=== PATIENT | female | born 1940 | race Caucasian/White ===

== ENCOUNTER → 2016-10-09 | Outpatient (CLI) | payer MEDICARE ==
--- NOTE | 2016-10-09 16:28 | XR ---
EXAMINATION TYPE: XR chest 2V DATE OF EXAM: 10/09/2016 3:58 PM COMPARISON: Prior chest x-ray 05 October 2015 HISTORY: Shortness of breath TECHNIQUE: Frontal and lateral views of the chest are obtained. FINDINGS: Prominent lung volumes are again noted suggesting underlying COPD. Suspect coronary artery calcifications, the aorta is dense. The heart remains enlarged. No airspace disease, pneumothorax, o r pleural effusion. Patient is rotated. IMPRESSION: No acute cardiopulmonary process. Cardiomegaly and additional findings above.
[2016-10-09 16:34] LABS: Basophils % (A) 0 %; CH 31.7; CHCM 32.6; Eosinophils # (A) 0.1 k/uL (0-0.7); Eosinophils % (A) 1 %; HCT 39.1 % (34.0-46.0); HDW 2.37; HGB 12.4 gm/dL (11.4-16.0); Luc # (Auto) 0.21; Luc % (Auto) 3; Lymphocytes # (A) 1.8 k/uL (1.0-4.8); Lymphocytes % (A) 28 %; MCH 30.9 pg (25.0-35.0); MCHC 31.7 g/dL (31.0-37.0); MCV 97.5 fL (80.0-100.0); Mean Platelet Volume 7.7; Monocytes # (A) 0.4 k/uL (0-1.0); Monocytes % (A) 7 %; Neutrophils # (A) 3.9 k/uL (1.3-7.7); Neutrophils % (A) 60 %; RDW 13.4 % (11.5-15.5); WBC 6.5 k/uL (3.8-10.6); WBC (Perox) 6.88
[2016-10-09 16:41] LABS: Calcium 9.1 mg/dL (8.4-10.2); Potassium 4.1 mmol/L (3.5-5.1); Total Bilirubin 0.4 mg/dL (0.2-1.3); Total Protein 6.7 g/dL (6.3-8.2)
== END | disposition home or self-care (01) ==
LOC: RADXRMAIN 15:38
PROVIDERS: ATTEND Internal Medicine Cardiovascular Disease
DX: R06.02 Shortness of breath (principal); I51.7 Cardiomegaly
CPT/HCPCS: 71020; 80053; 83880; 85025

== ENCOUNTER 2016-10-24 07:29 | Inpatient (IN) | payer MEDICARE ==
[2016-10-22 09:27] VITALS: BMI 20.3
[~2016-10-24 07:29] MED LIST: SODIUM CHLORIDE 0.9% 1,000 ML IV SCH; ceFAZolin 2 GM in SODIUM CHLORIDE 0.9% 100 ML IVPB ONE
[2016-10-24] MEDS ORDERED: ceFAZolin 2 GM in SODIUM CHLORIDE 0.9% 100 ML IVPB STA (07:30)
[2016-10-24 07:50] VITALS: RESP 16
[2016-10-24 08:12] LABS: INR 1.8 (<1.1); Prothrombin Time 17.3 sec (9.0-12.0)
[2016-10-24] MEDS: BENZOCAINE SPRAY 100 APPLIC/CAN MUCOUS MEM ONE ×2 (08:25→08:31)
[2016-10-24] MEDS ORDERED: fentaNYL (PF) 50 MCG/ML 2 ML AMP IV ONE (08:33)
[2016-10-24] MEDS: MIDAZOLAM 2 MG/2 ML VIAL IV ONE ×2 (08:33→08:36)
[2016-10-24] MEDS ORDERED: DEXTROSE 5% IN WATER 100 ML with AMIODARONE 150 MG IV ONE ×2 (09:10→09:29)
[2016-10-24] MEDS ORDERED: ALPRAZolam 0.5 MG TAB PO PRN (09:20)
[2016-10-24] MEDS ORDERED: ASPIRIN 325 MG TAB PO STA (09:20)
[2016-10-24] MEDS ORDERED: SODIUM CHLORIDE 0.9% 1,000 ML in EMPTY BAG 1 BAG IV ONE (09:20)
[2016-10-24] MEDS ORDERED: ATORVASTATIN 80 MG TAB PO STA (09:20)
[2016-10-24] MEDS ORDERED: NITROGLYCERIN SL TABS 0.4 MG TAB SUBLINGUAL PRN (09:20)
[2016-10-24] MEDS ORDERED: ALPRAZolam 0.25 MG TAB PO PRN (09:20)
[2016-10-24] MEDS ORDERED: HEPARIN SODIUM,PORCINE 5,000 UNIT/ML 1 ML VIAL IV PRN (09:27)
--- NOTE | 2016-10-24 09:27 | P.PCN ---
Date of Procedure: 10/24/16 Preoperative Diagnosis: Mitral regurgitation, atrial fibrillation and congestive heart failure Postoperative Diagnosis: Moderately severe mitral regurgitation, ruptured chordae tendineae. Procedure(s) Performed: DONALDO examination Description of Procedure: INDICATION : Mitral regurgitation and CHF CONSENT: Verbal consent was obtained from patient and family PROCEDURE: Patient was brought to the lab in a fasting state. She was prepped and draped in the usual fashion. The throat was sprayed with Hurricaine. A lubricated Omni probe was introduced in the oropharynx and was advanced into the esophagus. Multiple views were obtained both from esophagus and stomach. Color Doppler study was done. Saline contrast bubble injections were not performed. Patient tolerated the procedure well. No immediate complications. FINDINGS: The mitral valve shows thickening and evidence of a ruptured chordae tendineae. There appears to be eccentric 3+ mitral regurgitation. Both atria are enlarged. There is a moderate tricuspid regurgitation. There is mild aortic regurgitation. The aortic valve is tricuspid. Left ventricle size and function appear to be normal. Left atrial appendage showed mild haziness but not definitely suggestive of clot. There is moderate plaque in the aorta. The interatrial septum appeared to be intact without any spontaneous shunt. IMPRESSION: #1. Ruptured chordae tendineae with moderately severe mitral regurgitation #2 .Myxomatous mitral valve . #3. Biatrial enlargement #4. Mild haziness in the left atrial appendage. #5. Preserved LV function #6. Moderately severe tricuspid regurgitation. #7. Moderate plaque in the aorta. PLAN: I will change Rythmol to amiodarone because of significant recurrent atrial fibrillation and also ventricular ectopy. We'll proceed with cardiac catheterization. May consider for possible mitral valve repair.
[2016-10-24] MEDS ORDERED: AMIODARONE 450 MG in DEXTROSE 5% IN WATER 250 ML IV SCH ×2 (09:30)
[2016-10-24 10:18] LABS: Basophils % (A) 0 %; CH 31.6; CHCM 32.8; Eosinophils % (A) 1 %; HCT 40.8 % (34.0-46.0); HDW 2.37; HGB 13.3 gm/dL (11.4-16.0); Luc # (Auto) 0.12; Luc % (Auto) 2; Lymphocytes # (A) 1.4 k/uL (1.0-4.8); Lymphocytes % (A) 21 %; MCH 31.6 pg (25.0-35.0); MCHC 32.7 g/dL (31.0-37.0); MCV 96.7 fL (80.0-100.0); Mean Platelet Volume 7.4; Monocytes # (A) 0.3 k/uL (0-1.0); Monocytes % (A) 5 %; Neutrophils # (A) 4.5 k/uL (1.3-7.7); Neutrophils % (A) 71 %; RBC 4.22 m/uL (3.80-5.40); RDW 13.1 % (11.5-15.5); WBC 6.3 k/uL (3.8-10.6); WBC (Perox) 7.04
[2016-10-24] MEDS: AMIODARONE 450 MG in DEXTROSE 5% IN WATER 250 ML IV SCH ×6 (10:18→20:58)
[2016-10-24 10:28] LABS: INR 1.8 (<1.1); Partial Thromboplastin Time 30.6 sec (22.0-30.0); Prothrombin Time 17.1 sec (9.0-12.0)
[2016-10-24] MEDS: SODIUM CHLORIDE 0.9% 1,000 ML IV SCH (15:29)
[2016-10-24] MEDS ORDERED: HEPARIN SODIUM,PORCINE 5,000 UNIT/ML 1 ML VIAL IV ONE (16:00)
[2016-10-24] MEDS ORDERED: HEPARIN SODIUM,PORCINE/D5W PMX 25,000 UNIT in DEXTROSE/WATER 1 500ML.BAG IV SCH (16:00)
[2016-10-24] MEDS ORDERED: PANTETHINE PO SCH (21:00)
[2016-10-24] MEDS: ATORVASTATIN 10 MG TAB PO SCH (21:07)
[2016-10-25] MEDS: BISMUTH SUBSALICYLATE 4,192 MG/240 ML BOTTLE PO PRN ×2 (01:40→20:54)
[2016-10-25 06:38] LABS: Basophils % (A) 0 %; CH 31.7; CHCM 33.1; Eosinophils # (A) 0.1 k/uL (0-0.7); Eosinophils % (A) 2 %; HCT 36.5 % (34.0-46.0); HDW 2.33; Luc % (Auto) 3; Lymphocytes # (A) 2.5 k/uL (1.0-4.8); Lymphocytes % (A) 38 %; MCH 31.6 pg (25.0-35.0); MCHC 32.9 g/dL (31.0-37.0); MCV 96.1 fL (80.0-100.0); Mean Platelet Volume 8.2; Monocytes # (A) 0.4 k/uL (0-1.0); Monocytes % (A) 7 %; Neutrophils # (A) 3.3 k/uL (1.3-7.7); Neutrophils % (A) 50 %; RBC 3.79 m/uL (3.80-5.40); RDW 13.1 % (11.5-15.5); WBC 6.6 k/uL (3.8-10.6); WBC (Perox) 7.06
[2016-10-25 06:55] LABS: INR 1.5 (<1.1); Partial Thromboplastin Time 57.3 sec (22.0-30.0); Prothrombin Time 14.4 sec (9.0-12.0)
[2016-10-25] MEDS: amLODIPine 5 MG TAB PO SCH (08:50)
[2016-10-25] MEDS: PANTOPRAZOLE 40 MG TABLET PO SCH (08:50)
[2016-10-25] MEDS: FUROSEMIDE 20 MG TAB PO SCH (08:50)
[2016-10-25] MEDS: POTASSIUM CHLORIDE ER 10 MEQ TAB.ER.PRT PO SCH (08:50)
[2016-10-25] MEDS: LISINOPRIL 20 MG TAB PO SCH (08:50)
[2016-10-25] MEDS ORDERED: ATENOLOL 50 MG TAB PO SCH (09:00)
[2016-10-25] MEDS ORDERED: ASPIRIN 325 MG TAB PO STA (10:33)
[2016-10-25] MEDS ORDERED: fentaNYL (PF) 50 MCG/ML 2 ML AMP ONE (10:37)
[2016-10-25] MEDS ORDERED: MIDAZOLAM 2 MG/2 ML VIAL ONE (10:37)
[2016-10-25] MEDS ORDERED: LIDOCAINE 2% INJ 20 MG/ML (20 ML MDV) ONE (10:38)
[2016-10-25] MEDS ORDERED: ASPIRIN 325 MG TAB PO ONE (10:40)
[2016-10-25] MEDS ORDERED: ASPIRIN 325 MG TAB PO SCH (10:45)
[2016-10-25] MEDS ORDERED: MIDAZOLAM 2 MG/2 ML VIAL IVP ONE (10:50)
[2016-10-25] MEDS ORDERED: fentaNYL (PF) 50 MCG/ML 2 ML AMP IV ONE (10:50)
[2016-10-25] MEDS ORDERED: IV FLUID CONTINUATION 250 ML IV ONE (10:58)
[2016-10-25] MEDS ORDERED: LIDOCAINE 2% INJ 20 MG/ML SQ ONE (11:05)
[2016-10-25 11:34] LABS: Site PA
[2016-10-25 11:36] LABS: Site RA
[2016-10-25] MEDS ORDERED: IODIXANOL 320 MG/ML 100 ML INTRAARTER ONE (11:36)
[2016-10-25 11:39] LABS: Site FA
[2016-10-25] MEDS ORDERED: RX INFO: IV CONTRAST WAS GIVEN 1 EACH MISC MISCELLANE PRN (11:47)
--- NOTE | 2016-10-25 12:07 | P.PCN ---
Date of Procedure: 11/01/16 Description of Procedure: HISTORY: This is 75-year-old female with history of paroxysmal atrial fibrillation who came to our office with complaints of increasing shortness of breath and paroxysmal nocturnal dyspnea. She was found to have evidence of moderately severe mitral regurgitation. The DONALDO examination confirmed presence of 3+ mitral regurg with a ruptured cardiac. Patient is advised to have a cardiac catheterization to further assess mitral regurgitation, hemodynamics and also to rule out any concomitant coronary artery disease. CONSENT:I have discussed the risks, benefits and alternative therapies for the above-mentioned procedure and for both sedation/analgesia as well as necessary blood product administration, if indicated, as they pertain to this patient. The patient has indicated understanding and acceptance of the risks and procedures discussed. PROCEDURE: RIGHT HEART CATHETERIZATION: The right groin is infiltrated with lidocaine. Right femoral vein was entered using Seldinger technique. Right heart catheterization was performed using a [place] catheter. Patient tolerated the procedure well. Manual compression was applied for hemostasis. : Left heart catheterization: Patient was brought to the lab in a fasting state. Patient was given some IV sedation. The right groin is infiltrated with lidocaine and right femoral artery was entered using Seldinger technique. A 6-Irish catheter was left in place and selective coronary arteriography and left ventriculography was performed. Patient tolerated the procedure well. Femoral angiogram was performed and manual compression was applied for hemostasis. No immediate complications were noted and patient was transferred to [facility] in a stable condition HEMODYNAMICS: THE RIGHT HEART CATHETERIZATION. The right atrium: 4, right ventricular 15/4, PA pressure is 15/5 and wedge pressure is about 5. Cardiac output by thermodilution method is 3.03 and by Willy method is 3.49. LEFT HEART CATHETERIZATION: The aortic pressure is 138/80. Left ankle end-diastolic pressure is 5-10. There was no gradient across the aortic valve. SELECTIVE CORONARY ARTERIOGRAPHY: LEFT MAIN: Normal length and patent ,heavily calcified THE LEFT ANTERIOR DESCENDING CORONARY ARTERY: This is a good caliber vessel giving rise to good-sized 2 diagonal branches and small septal branches. The LAD is calcified but no Sigmund focal lesion except about 80% stenosis of second diagonal and mild disease in the mid LAD.. THE LEFT CIRCUMFLEX AND IS CORONARY ARTERY: This is a good caliber vessel and free of occlusive disease THE RIGHT CORONARY ARTERY: This is also good caliber vessel giving rise to good-sized PDA and PLV and appears to be free of any significant occlusive disease LEFT VENTRICULOGRAPHY: This revealed normal-sized cardiac silhouette with good systolic function. There appears to be 3+ mitral regurgitation FINAL IMPRESSION: #1. 3+ mitral regurg #2. Mild coronary artery disease with calcification #3. Preserved LV function #4. Normal hemodynamics PLAN: Maximum medical therapy. We'll continue amiodarone for control of atrial fibrillation. Continue with anticoagulation. The first symptoms are not controlled with medical therapy, may consider mitral valve repair. PROGNOSIS: Guarded
[2016-10-25] MEDS ORDERED: HEPARIN SODIUM,PORCINE 5,000 UNIT/ML 1 ML VIAL IV PRN (12:59)
[2016-10-25] MEDS ORDERED: HEPARIN SODIUM,PORCINE/D5W PMX 25,000 UNIT in DEXTROSE/WATER 1 500ML.BAG IV SCH (13:00)
[2016-10-25 13:34] LABS: Basophils % (A) 1 %; CH 31.8; CHCM 33.3; Eosinophils # (A) 0.1 k/uL (0-0.7); Eosinophils % (A) 2 %; HCT 38.5 % (34.0-46.0); HDW 2.38; HGB 12.5 gm/dL (11.4-16.0); Luc # (Auto) 0.17; Luc % (Auto) 3; Lymphocytes % (A) 34 %; MCH 31.2 pg (25.0-35.0); MCHC 32.5 g/dL (31.0-37.0); MCV 95.9 fL (80.0-100.0); Monocytes # (A) 0.3 k/uL (0-1.0); Monocytes % (A) 5 %; Neutrophils # (A) 3.3 k/uL (1.3-7.7); Neutrophils % (A) 56 %; RBC 4.02 m/uL (3.80-5.40); RDW 13.1 % (11.5-15.5); WBC (Perox) 6.44
[2016-10-25 13:43] LABS: INR 1.4 (<1.1); Partial Thromboplastin Time 29.2 sec (22.0-30.0); Prothrombin Time 13.8 sec (9.0-12.0)
[2016-10-25] MEDS: AMIODARONE 450 MG in DEXTROSE 5% IN WATER 250 ML IV SCH ×2 (15:38)
[2016-10-25] MEDS: SODIUM CHLORIDE 0.9% 1,000 ML IV SCH ×2 (15:39→16:42)
[2016-10-25] MEDS: AMIODARONE 200 MG TAB PO SCH ×3 (15:40→20:55)
[2016-10-25] MEDS ORDERED: WARFARIN 2 MG TAB PO ONE (18:00)
[2016-10-25] MEDS: ATORVASTATIN 10 MG TAB PO SCH (20:55)
[2016-10-26] MEDS: SODIUM CHLORIDE 0.9% 1,000 ML IV SCH (01:30)
[2016-10-26 05:31] VITALS: PULSE 64
[2016-10-26 06:11] LABS: Basophils % (A) 0 %; CH 31.7; Eosinophils # (A) 0.1 k/uL (0-0.7); Eosinophils % (A) 2 %; HCT 34.3 % (34.0-46.0); HDW 2.43; Luc # (Auto) 0.15; Luc % (Auto) 3; Lymphocytes # (A) 1.7 k/uL (1.0-4.8); Lymphocytes % (A) 32 %; MCH 31.1 pg (25.0-35.0); MCHC 32.2 g/dL (31.0-37.0); MCV 96.7 fL (80.0-100.0); Mean Platelet Volume 7.6; Monocytes # (A) 0.3 k/uL (0-1.0); Monocytes % (A) 6 %; Neutrophils % (A) 56 %; RBC 3.55 m/uL (3.80-5.40); RDW 13.2 % (11.5-15.5); WBC 5.4 k/uL (3.8-10.6); WBC (Perox) 5.68
[2016-10-26 06:22] LABS: INR 1.6 (<1.1); Partial Thromboplastin Time 58.9 sec (22.0-30.0); Prothrombin Time 15.2 sec (9.0-12.0)
[2016-10-26 07:02] LABS: Calcium 9.2 mg/dL (8.4-10.2); Potassium 3.9 mmol/L (3.5-5.1)
[2016-10-26] MEDS ORDERED: ATENOLOL 50 MG TAB PO SCH (09:00)
[2016-10-26] MEDS ORDERED: ASPIRIN 325 MG TAB PO SCH (09:00)
[2016-10-26] MEDS ORDERED: ASPIRIN 81 MG CHEW PO SCH (09:00)
[2016-10-26] MEDS: POTASSIUM CHLORIDE ER 10 MEQ TAB.ER.PRT PO SCH (09:13)
[2016-10-26] MEDS: AMIODARONE 200 MG TAB PO SCH (09:13)
[2016-10-26] MEDS: PANTOPRAZOLE 40 MG TABLET PO SCH (09:13)
[2016-10-26] MEDS: LISINOPRIL 20 MG TAB PO SCH (09:13)
[2016-10-26] MEDS: FUROSEMIDE 20 MG TAB PO SCH (09:13)
[2016-10-26] MEDS: amLODIPine 5 MG TAB PO SCH (09:14)
[2016-10-26 09:26] VITALS: BP 137/61; TEMP 97.7
--- NOTE | 2016-10-26 10:06 | DS ---
DATE OF ADMISSION: 10/24/2016 DATE OF DISCHARGE: PROCEDURES PERFORMED: 1. Transesophageal echo. 2. Cardiac catheterization This is a 75-year-old lady that was brought in electively by my associate, Dr. Phillips for a DONALDO and cardiac catheterization. She had moderate to severe mitral regurgitation and in DONALDO was found to have ruptured chordae secondary to myxomatous mitral valve. Patient underwent cardiac catheterization that revealed normal coronary arteries. The patient also has paroxysmal atrial fibrillation and patient is being treated with Amiodarone for rhythm suppression and Coumadin for anticoagulation. The plan is to continue with these therapies and consider mitral valve repair if she develops any symptoms. At the moment, the patient is totally asymptomatic. Condition at the time of discharge: She is comfortable at rest. Vital signs are stable. There is no jugular venous distention. Carotid upstroke is normal. There is no bruit. Chest exam reveals good air entry bilaterally. Heart exam reveals first and second heart sounds. No gallop. Exam of the extremities did not reveal edema and first and second heart sounds. Systolic murmur at the apex. ABDOMEN: Soft. Exam of the extremities did not reveal edema. Peripheral pulses are felt. Rhythm strip shows that she is in sinus rhythm. Labs show a hemoglobin of 11, platelet count is 143. INR is 1.6. BUN is 16, creatinine is 1.1. DISCHARGE MEDICATIONS include: 1. Lisinopril 40 daily. 2. Tenormin 50 mg daily. 3. Lipitor. 4. Lasix 60 daily. 5. K-Dur. 6. Amlodipine. 7. Amiodarone 200 t.i.d. Follow-up: Patient will be followed up by Dr. Phillips in the office. She is on Coumadin. She takes 2.5 mg of Coumadin daily which is what she is going to get a on discharge. Follow up in our office on Saturday with an INR. The patient's INR is subtherapeutic, but already coming up to 1.6, she received 4 mg of Coumadin for the last 2 days which is what I am going to give her.
== END 2016-10-26 11:34 | disposition home or self-care (01) | DRG 286 ==
LOC: CATHCVL 07:29 → 6SEL 08:58
PROVIDERS: ADMIT Internal Medicine Cardiovascular Disease; ATTEND Internal Medicine Cardiovascular Disease
PROC: B246ZZ4 Ultrasonography of Right and Left Heart, Transesophageal (ICD-10-PCS; principal; 2016-10-24 08:30)
PROC: 4A023N8 Measurement of Cardiac Sampling and Pressure, Bilateral, Percutaneous Approach (ICD-10-PCS; 2016-10-25)
PROC: B2151ZZ Fluoroscopy of Left Heart using Low Osmolar Contrast (ICD-10-PCS; 2016-10-25)
PROC: B2111ZZ Fluoroscopy of Multiple Coronary Arteries using Low Osmolar Contrast (ICD-10-PCS; 2016-10-25)
DX: I48.0 Paroxysmal atrial fibrillation (principal); I51.1 Rupture of chordae tendineae, not elsewhere classified; I50.9 Heart failure, unspecified; I08.3 Combined rheumatic disorders of mitral, aortic and tricuspid valves; I25.10 Atherosclerotic heart disease of native coronary artery without angina pectoris; Z79.899 Other long term (current) drug therapy
CPT/HCPCS: 80048; 82810; 85018; 85025; 85610; 85730; 93312; 93320; 93325; 93460

== ENCOUNTER → 2018-02-07 | Outpatient (CLI) | payer MEDICARE ==
--- NOTE | 2018-02-07 14:47 | XR ---
Lumbar spine HISTORY: Low back pain 3 views of the lumbar spine Bone mineralization is reduced. There is multilevel spondylosis. Loss of vertebral body height of sup erior endplate present at L1. No significant retropulsion evident. Sclerosis noted in the posterior aspect of the lower lumbar spine. Disc spaces relatively maintained. Atherosclerotic vascular calcif ications noted in the aorta. IMPRESSION: Osteoporotic compression fracture superior endplate of L1 loss of height of approximately 25%. Mild degenerative disc disease, facet arthropathy.
== END | disposition home or self-care (01) ==
LOC: RADXRYALE 13:25
PROVIDERS: ATTEND Internal Medicine
DX: M80.88XA Other osteoporosis with current pathological fracture, vertebra(e), initial encounter for fracture (principal); M51.36 Other intervertebral disc degeneration, lumbar region; M46.96 Unspecified inflammatory spondylopathy, lumbar region
CPT/HCPCS: 72100

== ENCOUNTER → 2019-07-16 | Outpatient (CLI) | payer MEDICARE ==
--- NOTE | 2019-07-16 12:53 | XR ---
Rectal lumbar junction HISTORY: Thoracolumbar pain From lateral thoracic lumbar spine submitted and correlated to prior lumbar spine dated 02/07/2018 Bone mineralization is reduced. There is a spinal curvature. Aorta is dense and ectatic. Wedge compre ssion deformities are noted at the lower thoracic spine, superior loss of height at the anterior endp lates of T12 and L1 noted, L1 is chronic. Multilevel spondylosis is present. IMPRESSION: Osteoporotic compression deformity at T12 of questionable age
== END | disposition home or self-care (01) ==
LOC: RADXRYALE 11:12
PROVIDERS: ATTEND Internal Medicine
DX: M54.6 Pain in thoracic spine (principal)
CPT/HCPCS: 72080

== ENCOUNTER → 2019-08-20 | Outpatient (CLI) | payer MEDICARE ==
--- NOTE | 2019-08-20 11:07 | XR ---
EXAMINATION TYPE: XR cervical spine comp DATE OF EXAM: 08/20/2019 COMPARISON: NONE HISTORY: Pain TECHNIQUE: Four views are submitted. FINDINGS: The odontoid is intact. There are no compression deformities. The prevertebral soft tissue structur es are within normal limits. There is severe degenerative disc disease C5-6 and C6-C7 with posterior spondylosis at C5-C6. Slight anterolisthesis of C4 on C5. Multilevel facet arthropathy. Foraminal en croachment C5-C6 bilaterally. IMPRESSION: 1. Multilevel degenerative disc disease severe changes at C5-6 and C6-C7. Bilateral foraminal encroac hment noted. Recommend follow-up MRI.
== END | disposition home or self-care (01) ==
LOC: RADXRYALE 10:18
PROVIDERS: ATTEND Internal Medicine
DX: M50.322 Other cervical disc degeneration at C5-C6 level (principal)
CPT/HCPCS: 72050

== ENCOUNTER 2019-10-20 14:26 | Inpatient (IN) | payer MEDICARE ==
[2019-10-20] MEDS ORDERED: ASPIRIN 81 MG PO STA (14:47)
--- NOTE | 2019-10-20 14:50 | ED ---
General Adult HPI - General Chief complaint: Shortness of Breath Stated complaint: Sob Time Seen by Provider: 10/20/19 14:32 Source: patient, RN notes reviewed Mode of arrival: EMS Limitations: no limitations - History of Present Illness Initial comments: Patient is a pleasant 78-year-old female presenting to the emergency Department with complaints of palpitations shortness of breath. Symptoms worsened last night. Patient does have previous palpitations associated with atrial fibrillation. Patient also has previous dyspnea so she with her health 12. Patient states there may be some mild leg swelling. No calf pain. No fevers. Minimal cough. - Related Data Home Medications Medication Instructions Recorded Confirmed Aspirin [Adult Low Dose Aspirin EC] 81 mg PO DAILY 10/05/15 10/24/16 Furosemide [Lasix] 60 mg PO DAILY 10/05/15 10/24/16 Lisinopril 40 mg PO DAILY 10/05/15 10/24/16 Pantoprazole Sodium [Protonix] 40 mg PO DAILY 10/05/15 10/24/16 Potassium Chloride ER [K-Dur 10] 10 meq PO DAILY 10/05/15 10/24/16 Simvastatin [Zocor] 20 mg PO HS 10/05/15 10/24/16 Warfarin [Coumadin] 2.5 mg PO DAILY 10/05/15 10/24/16 amLODIPine [Norvasc] 5 mg PO DAILY 10/05/15 10/24/16 Previous Rx's Medication Instructions Recorded Amiodarone [Cordarone] 200 mg PO TID #90 tab 10/26/16 Atenolol [Tenormin] 50 mg PO DAILY #90 tab 10/26/16 Nitroglycerin Sl Tabs [Nitrostat] 0.4 mg SUBLINGUAL Q5M PRN #25 tab 10/26/16 Allergies Allergy/AdvReac Type Severity Reaction Status Date / Time famotidine [From Pepcid] Allergy Rash/Hives Verified 10/20/19 14:46 Review of Systems ROS Statement: Those systems with pertinent positive or pertinent negative responses have been documented in the HPI. ROS Other: All systems not noted in ROS Statement are negative. Constitutional: Denies: fever, chills Eyes: Denies: eye pain ENT: Denies: ear pain Respiratory: Reports: as per HPI, dyspnea Cardiovascular: Reports: palpitations. Denies: chest pain Endocrine: Reports: fatigue Gastrointestinal: Denies: abdominal pain Genitourinary: Denies: dysuria Musculoskeletal: Denies: back pain Skin: Denies: rash Neurological: Denies: weakness Past Medical History Past Medical History: Atrial Fibrillation, Hyperlipidemia, Hypertension Additional Past Medical History / Comment(s): colitis, states has been SOB in the last few weeks. History of Any Multi-Drug Resistant Organisms: None Reported Past Surgical History: Appendectomy, Hysterectomy Past Psychological History: No Psychological Hx Reported Smoking Status: Never smoker Past Alcohol Use History: None Reported Past Drug Use History: None Reported - Past Family History Mother Family Medical History: No Reported History Brother(s) Family Medical History: Cancer Additional Family Medical History / Comment(s): Non-Hodgkins Lymphoma General Exam Limitations: no limitations General appearance: alert, in no apparent distress Head exam: Present: normocephalic Eye exam: Present: normal appearance, PERRL ENT exam: Present: normal oropharynx Neck exam: Present: normal inspection Respiratory exam: Present: normal lung sounds bilaterally Cardiovascular Exam: Present: tachycardia, irregular rhythm Expanded Peripheral pulses: 2+: Radial (R), Radial (L), Posterior Tibialis (R), Posterior Tibialis (L), Dorsalis Pedis (R), Dorsalis Pedis (L) GI/Abdominal exam: Present: soft. Absent: tenderness Extremities exam: Present: normal inspection. Absent: pedal edema (No significant edema), calf tenderness Neurological exam: Present: alert Psychiatric exam: Present: normal affect, normal mood Skin exam: Present: normal color Course Vital Signs 10/20/19 10/20/19 14:35 15:45 Temperature 97.3 F L Pulse Rate 133 H 105 H Respiratory 24 20 Rate Blood Pressure 124/87 123/56 O2 Sat by Pulse 98 96 Oximetry EKG Findings - EKG Comments: EKG Findings:: Sinus tachycardia 133. Short VT 96. QRS 84. QT 3:30. QTC 491. Normal axis. Septal Q waves. Nonspecific ST-T V6. Medical Decision Making - Medical Decision Making Patient reevaluated. Patient and family updated. Case was discussed in detail with Dr. Silva, who will admit covering for Dr. Diana. - Lab Data Result diagrams: 10/20/19 14:50 10/20/19 14:50 Lab Results 10/20/19 10/20/19 10/20/19 Range/Units 14:50 14:50 14:50 WBC 6.5 (3.8-10.6) k/uL RBC 3.47 L (3.80-5.40) m/uL Hgb 10.6 L (11.4-16.0) gm/dL Hct 33.0 L (34.0-46.0) % MCV 95.1 (80.0-100.0) fL MCH 30.7 (25.0-35.0) pg MCHC 32.3 (31.0-37.0) g/dL RDW 14.6 (11.5-15.5) % Plt Count 163 (150-450) k/uL Neutrophils % 66 % Lymphocytes % 24 % Monocytes % 5 % Eosinophils % 2 % Basophils % 1 % Neutrophils # 4.3 (1.3-7.7) k/uL Lymphocytes # 1.6 (1.0-4.8) k/uL Monocytes # 0.3 (0-1.0) k/uL Eosinophils # 0.1 (0-0.7) k/uL Basophils # 0.0 (0-0.2) k/uL PT 11.6 (9.0-12.0) sec INR 1.1 (<1.2) APTT 29.5 (22.0-30.0) sec Sodium 135 L (137-145) mmol/L Potassium 4.0 (3.5-5.1) mmol/L Chloride 105 (98-107) mmol/L Carbon Dioxide 24 (22-30) mmol/L Anion Gap 6 mmol/L BUN 40 H (7-17) mg/dL Creatinine 1.18 H (0.52-1.04) mg/dL Est GFR (CKD-EPI)AfAm 51 (>60 ml/min/1.73 sqM) Est GFR (CKD-EPI)NonAf 44 (>60 ml/min/1.73 sqM) Glucose 102 H (74-99) mg/dL Calcium 8.5 (8.4-10.2) mg/dL Magnesium 1.9 (1.6-2.3) mg/dL Total Bilirubin 0.6 (0.2-1.3) mg/dL AST 37 H (14-36) U/L ALT 34 (4-34) U/L Alkaline Phosphatase 79 (38-126) U/L Troponin I (0.000-0.034) ng/mL NT-Pro-B Natriuret Pep pg/mL Total Protein 6.3 (6.3-8.2) g/dL Albumin 3.4 L (3.5-5.0) g/dL 10/20/19 10/20/19 Range/Units 14:50 14:50 WBC (3.8-10.6) k/uL RBC (3.80-5.40) m/uL Hgb (11.4-16.0) gm/dL Hct (34.0-46.0) % MCV (80.0-100.0) fL MCH (25.0-35.0) pg MCHC (31.0-37.0) g/dL RDW (11.5-15.5) % Plt Count (150-450) k/uL Neutrophils % % Lymphocytes % % Monocytes % % Eosinophils % % Basophils % % Neutrophils # (1.3-7.7) k/uL Lymphocytes # (1.0-4.8) k/uL Monocytes # (0-1.0) k/uL Eosinophils # (0-0.7) k/uL Basophils # (0-0.2) k/uL PT (9.0-12.0) sec INR (<1.2) APTT (22.0-30.0) sec Sodium (137-145) mmol/L Potassium (3.5-5.1) mmol/L Chloride (98-107) mmol/L Carbon Dioxide (22-30) mmol/L Anion Gap mmol/L BUN (7-17) mg/dL Creatinine (0.52-1.04) mg/dL Est GFR (CKD-EPI)AfAm (>60 ml/min/1.73 sqM) Est GFR (CKD-EPI)NonAf (>60 ml/min/1.73 sqM) Glucose (74-99) mg/dL Calcium (8.4-10.2) mg/dL Magnesium (1.6-2.3) mg/dL Total Bilirubin (0.2-1.3) mg/dL AST (14-36) U/L ALT (4-34) U/L Alkaline Phosphatase (38-126) U/L Troponin I 0.022 (0.000-0.034) ng/mL NT-Pro-B Natriuret Pep 23954 pg/mL Total Protein (6.3-8.2) g/dL Albumin (3.5-5.0) g/dL - Radiology Data Radiology results: image reviewed (X-ray shows no acute process.) Critical Care Time Critical Care Time: Yes Total Critical Care Time: 32 Disposition Clinical Impression: Atrial fibrillation with RVR, Congestive heart failure Disposition: ADMITTED IP TO THIS HOSP Is patient prescribed a controlled substance at d/c from ED?: No Referrals: Loretta Diana MD [Primary Care Provider] - 1-2 days Decision Time: 16:12
[2019-10-20 15:08] LABS: Basophils % (A) 1 %; Eosinophils # (A) 0.1 k/uL (0-0.7); Eosinophils % (A) 2 %; HGB 10.6 gm/dL (11.4-16.0); Lymphocytes # (A) 1.6 k/uL (1.0-4.8); Lymphocytes % (A) 24 %; MCH 30.7 pg (25.0-35.0); MCHC 32.3 g/dL (31.0-37.0); MCV 95.1 fL (80.0-100.0); Mean Platelet Volume 9.2; Monocytes # (A) 0.3 k/uL (0-1.0); Monocytes % (A) 5 %; Neutrophils # (A) 4.3 k/uL (1.3-7.7); Neutrophils % (A) 66 %; Platelet Count 163 k/uL (150-450); RBC 3.47 m/uL (3.80-5.40); RDW 14.6 % (11.5-15.5); WBC 6.5 k/uL (3.8-10.6)
[2019-10-20 15:16] LABS: Albumin 3.4 g/dL (3.5-5.0); Calcium 8.5 mg/dL (8.4-10.2); Magnesium 1.9 mg/dL (1.6-2.3); Total Bilirubin 0.6 mg/dL (0.2-1.3); Total Protein 6.3 g/dL (6.3-8.2)
[2019-10-20 15:19] LABS: INR 1.1 (<1.2); Partial Thromboplastin Time 29.5 sec (22.0-30.0); Prothrombin Time 11.6 sec (9.0-12.0)
--- NOTE | 2019-10-20 15:45 | XR ---
EXAMINATION TYPE: XR chest 2V DATE OF EXAM: 10/20/2019 COMPARISON: 10/09/2016 HISTORY: Shortness of breath TECHNIQUE: Frontal and lateral views of the chest are obtained. FINDINGS: Scattered senescent parenchymal changes noted. Hyperinflation compatible with COPD. No evidence for infiltrate. No evidence for atelectasis. Chronic left basilar pleural thickening or s mall effusion. Heart size is stable. Mediastinal structures are stable and grossly unremarkable. No evidence for hilar prominence. Degenerative changes dorsal spine. IMPRESSION: 1. No evidence for acute pulmonary disease.
[2019-10-20] MEDS: DILTIAZEM 125 MG in SODIUM CHLORIDE 0.9% 100 ML IV SCH (15:47)
[2019-10-20] MEDS ORDERED: NALOXONE 0.4 MG/ML 1 ML VIAL IV PRN (16:12)
[2019-10-20] MEDS ORDERED: ASPIRIN 325 MG TAB PO STA (16:14)
[2019-10-20] MEDS ORDERED: ALPRAZolam 0.25 MG TAB PO PRN (16:58)
[2019-10-20] MEDS ORDERED: ACETAMINOPHEN TAB 500 MG TAB PO PRN (16:58)
--- NOTE | 2019-10-20 18:39 | HP ---
HISTORY AND PHYSICAL CHIEF COMPLAINT: Shortness of breath and palpitations. HISTORY OF PRESENT ILLNESS: This 78-year-old woman with a past medical history of multiple medical problems, including atrial fibrillation, history of hyperlipidemia, history of colitis, history of hypertension, being followed by Dr. Diana in the outpatient setting, was recently admitted to [facility] for about 7 days. The patient went home, and last night the patient was unable to sleep. The patient was short of breath. The patient also had palpitations. The patient came to [facility] and was admitted for further evaluation and treatment. She was found to have atrial fibrillation. Previous DONALDO showed moderate to severe mitral regurgitation secondary to chordae tendinae rupture also. The patient was found to have atrial fibrillation with rapid ventricular rate. The patient was started on Cardizem drip. The patient was also thought to have CHF. Chest x-ray showed minimal increased vascularity. BNP was elevated. The patient has been started on IV Lasix at this time. There is no history of any fever, rigor or chills. No history of headache, loss of consciousness, seizures. PAST MEDICAL HISTORY: History of atrial fibrillation, history of mitral regurgitation, hypertension, hyperlipidemia, history of appendectomy, hysterectomy. HOME MEDICATIONS: Reviewed. They include: 1. Norvasc 5 mg p.o. daily. 2. Coumadin 2.5 mg daily. 3. Zocor 20 mg at bedtime. 4. K-Dur 10 mEq p.o. daily. 5. Protonix 40 mg p.o. daily. 6. Nitrostat 0.4 sublingually p.r.n. 7. Lisinopril 40 mg p.o. daily. 8. Lasix 60 mg p.o. daily. 9. Tenormin 50 mg p.o. daily. 10.Ecotrin 81 mg p.o. daily. 11.Cordarone 200 mg p.o. t.i.d. ALLERGIES: PEPCID. FAMILY HISTORY: History of non-Hodgkin lymphoma in the family. SOCIAL HISTORY: No history of smoking. No history of alcohol intake. REVIEW OF SYSTEMS: ENT: Diminished hearing. Diminished vision. CARDIOVASCULAR SYSTEM: As mentioned earlier. RESPIRATORY SYSTEM: As mentioned earlier. GI: No nausea, vomiting. : No dysuria or retention. NERVOUS SYSTEM: No numbness, weakness. ALLERGY/IMMUNOLOGY: No asthma, hayfever. MUSCULOSKELETAL: As mentioned earlier. HEMATOLOGY/ONCOLOGY: As mentioned earlier. ENDOCRINE: No history of diabetes, hypothyroidism. CONSTITUTIONAL: As mentioned earlier. DERMATOLOGY: Negative. RHEUMATOLOGY: Negative. PSYCHIATRY: As mentioned earlier. PHYSICAL EXAMINATION: Patient is alert, oriented x3. Pulse is 133, irregular, blood pressure 124/87, respiration 24, temperature 97.3, pulse ox 98% on 2 L. HEENT: Conjunctivae normal. Oral mucosa moist. NECK: Jugular venous distention at the root of the neck. CARDIOVASCULAR SYSTEM: S1, S2 irregular, tachycardic. Ejection systolic murmur present. RESPIRATORY SYSTEM: Breath sounds diminished at the bases. Scattered rhonchi and crackles. ABDOMEN: Soft, non-tender. LEGS: No edema. No swelling. NERVOUS SYSTEM: Higher functions as mentioned earlier. Moves all 4 limbs. No focal motor or sensory deficit. LYMPHATICS: No lymph node palpable in neck, axillae or groin. SKIN: No ulcer, rash, bleeding. JOINTS: No active deforming arthropathy. LABS: Labs at this time show WBC 6.5, hemoglobin 10.6. Sodium 135, potassium 4, creatinine 1.18. ASSESSMENT: 1. Atrial fibrillation with fast ventricular rate. 2. Congestive heart failure, acute exacerbation, acute on chronic, with ejection fraction unknown. 3. History of moderate to severe mitral regurgitation. 4. Increased creatinine with chronic kidney disease, stage III. 5. Anemia, normocytic; anemia of chronic disease. 6. Mild to moderate protein-calorie malnutrition with body mass index of 17.4. 7. Hypertension. 8. Hyperlipidemia. 9. History of colitis. 10.History of appendectomy. 11.History of hysterectomy. RECOMMENDATIONS AND DISCUSSION: In this 78-year-old woman who presented with multiple complex medical issues, we will monitor the patient closely, continue the current medications, continue symptomatic treatment. Will resume the home medications. Continue with the Damon quinteros. Cardiology consultation. Lasix will be initiated intravenously. Fluid restriction. We will try to get old records from [facility]. Otherwise, I will order a 2D echo with Doppler if it was not done recently. The overall prognosis is guarded because of multiple complex medical issues. Apparently the patient is compliant with dietary restrictions at home. Will also institute fluid restriction. Prognosis guarded. Further recommendations to follow. A copy of this dictation is being forwarded to Dr. Diana, who is the primary physician. See orders for further details. MMODL / IJN: [id number] /
[2019-10-20] MEDS ORDERED: HEPARIN SODIUM,PORCINE 5,000 UNIT/ML 1 ML VIAL SQ SCH (21:00)
[2019-10-20] MEDS: FUROSEMIDE 10 MG/ML 4 ML VIAL IV SCH (21:06)
[2019-10-20] MEDS: NITROGLYCERIN OINT 1 INCH/GM PACKET TOPICAL SCH (21:06)
[2019-10-21] MEDS: FUROSEMIDE 10 MG/ML 4 ML VIAL IV SCH ×2 (04:37→15:09)
[2019-10-21] MEDS: NITROGLYCERIN OINT 1 INCH/GM PACKET TOPICAL SCH ×5 (04:37→23:15)
[2019-10-21 06:45] LABS: Basophils % (A) 0 %; Eosinophils # (A) 0.1 k/uL (0-0.7); Eosinophils % (A) 1 %; HCT 34.9 % (34.0-46.0); HGB 11.5 gm/dL (11.4-16.0); Lymphocytes # (A) 1.5 k/uL (1.0-4.8); Lymphocytes % (A) 18 %; MCH 31.7 pg (25.0-35.0); MCHC 33.1 g/dL (31.0-37.0); MCV 95.8 fL (80.0-100.0); Mean Platelet Volume 8.4; Monocytes # (A) 0.3 k/uL (0-1.0); Monocytes % (A) 4 %; Neutrophils # (A) 6.1 k/uL (1.3-7.7); Neutrophils % (A) 74 %; Platelet Count 173 k/uL (150-450); RBC 3.64 m/uL (3.80-5.40); RDW 14.5 % (11.5-15.5); WBC 8.3 k/uL (3.8-10.6)
[2019-10-21] MEDS: PANTOPRAZOLE 40 MG TABLET PO SCH (06:57)
[2019-10-21 07:04] LABS: Calcium 8.6 mg/dL (8.4-10.2); Potassium 3.4 mmol/L (3.5-5.1)
[2019-10-21] MEDS: APIXABAN 2.5 MG TABLET PO SCH ×2 (08:37→20:20)
--- NOTE | 2019-10-21 08:43 | CONS ---
CONSULTATION Katie is an 78-year-old lady with history of severe mitral regurgitation, congestive heart failure and atrial fibrillation, who presented to hospital with symptoms of shortness of breath and palpitations. Cardiology has been consulted for the same. She has known moderate to severe mitral regurgitation with a ruptured chordae tendineae and is awaiting evaluation by cardiothoracic surgeon for possible mitral valve repair. She was short of breath and had sustained palpitations. She was found to be in atrial fibrillation with RVR and is currently on Cardizem drip with some improvement in her symptoms. The BNP is elevated. Chest x-ray showed mild increase in congestion. At the time of my evaluation, patient appears comfortable at rest and does not seem to be in respiratory distress. PAST MEDICAL HISTORY: Significant for atrial fibrillation, mitral regurgitation, hypertension, dyslipidemia, appendectomy, hysterectomy. MEDICATIONS: Medications at home include Norvasc, Zocor, K-Dur, Protonix, Lasix, Tenormin, aspirin and Cordarone. The patient tells me that she is taking Eliquis. ALLERGIES: Allergic to PEPCID. FAMILY HISTORY: Significant for non-Hodgkin's lymphoma. SOCIAL HISTORY: Negative for smoking, EtOH abuse or drug abuse. REVIEW OF SYSTEMS: HEENT is significant for diminished hearing and vision. CARDIOVASCULAR: As described above. RESPIRATORY: As described above. GI: Negative. GENITOURINARY: Negative. OIL SEPARATOR: Negative. ALLERGY/IMMUNOLOGY: Negative. SKIN: Negative. MUSCULOSKELETAL: Significant for arthritis. PSYCHOSOCIAL: Negative. ENDOCRINE: Negative. HEMATOLOGICAL: Negative. DERM: Negative. CONSTITUTIONAL: Negative. ONCOLOGICAL: Negative. Rest of the system review is not relevant. PHYSICAL EXAMINATION: On exam, heart rate is 110 beats per minute, irregularly, irregular. Blood pressure is 146/90, respiratory rate is 18. Chest exam reveals diminished air entry at the bases. Heart exam reveals first and second heart sounds and a grade 4/6 systolic murmur at the apex. Abdomen is soft. Exam of extremities did not reveal any edema. Peripheral pulses are felt. LABS: Labs show a hemoglobin of 11.5, platelet count is 173. Potassium is 3.4. BUN is 34, creatinine is 1.1. BNP is 10,000. TSH is normal. EKG shows atrial fibrillation with rapid ventricular rate and poor R-wave progression. The patient had a cardiac catheterization in 2017 that revealed 3+ mitral regurgitation and mild nonobstructive coronary artery disease. ASSESSMENT: 1. Acute exacerbation of chronic congestive heart failure. 2. Permanent atrial fibrillation with poorly controlled ventricular rate. 3. Moderate to severe mitral regurgitation. PLAN: I will continue the Cardizem drip. Resume the Eliquis and treat her with IV Lasix. I will review the echocardiogram once the results are available. MMODL / IJN: [id number] /
[2019-10-21] MEDS ORDERED: ASPIRIN 325 MG TAB PO SCH (09:00)
[2019-10-21] MEDS ORDERED: POTASSIUM CHLORIDE ER 20 MEQ TAB.ER PO STA (09:04)
[2019-10-21] MEDS ORDERED: CYCLOBENZAPRINE 10 MG TAB PO PRN (09:05)
--- NOTE | 2019-10-21 12:00 | ECHOF ---
Referral Reason:chf MEASUREMENTS -------- HEIGHT: 160.0 cm WEIGHT: 44.5 kg BP: RVIDd: 2.9 cm (< 3.3) IVSd: 1.1 cm (0.6 - 1.1) LVIDd: 4.7 cm (3.9 - 5.3) LVPWd: 1.5 cm (0.6 - 1.1) IVSs: 1.2 cm LVIDs: 4.3 cm LVPWs: 1.5 cm LAESV Index (A-L): 80.26 ml/m Ao Diam: 2.2 cm (2.0 - 3.7) AV Cusp: 1.6 cm (1.5 - 2.6) LA Diam: 4.8 cm (2.7 - 3.8) AR PHT: 332 ms RAP: 5.00 mmHg RVSP: 41.92 mmHg FINDINGS -------- Atrial fibrillation. This was a technically good study. The left ventricular size is normal. There is mild concentric left ventricular hypertrophy. Overa ll left ventricular systolic function is moderate-severely impaired with, an EF between 30 - 35 %. Left ventricular fillimg pressure cannot be estimated due to Atrial fibrillation. The right ventricle is normal in size. LA is severely dilated >40 ml/m2 RA appears enlarged. Interatrial and interventricular septum intact. Aortic valve is trileaflet and is mildly thickened. There is mild aortic regurgitation. The mitral valve is normal. The mitral valve leaflets are mildly thickened. Severe mitral regurgi tation is present. The tricuspid valve appears structurally normal. Mild tricuspid regurgitation present. There is m ild pulmonary hypertension. The right ventricular systolic pressure, as measured by Doppler, is 41. 92mmHg. There is no pulmonic regurgitation present. The aortic root size is normal. Normal inferior vena cava with normal inspiratory collapse consistent with estimated right atrial pre ssure of 5 mmHg. There is no pericardial effusion. CONCLUSIONS -------- 1. Atrial fibrillation. 2. This was a technically good study. 3. The left ventricular size is normal. 4. There is mild concentric left ventricular hypertrophy. 5. Left ventricular fillimg pressure cannot be estimated due to Atrial fibrillation. 6. The right ventricle is normal in size. 7. LA is severely dilated >40 ml/m2 8. RA appears enlarged. 9. Interatrial and interventricular septum intact. 10. Aortic valve is trileaflet and is mildly thickened. 11. There is mild aortic regurgitation. 12. The mitral valve is normal. 13. The mitral valve leaflets are mildly thickened. 14. Severe mitral regurgitation is present. 15. The tricuspid valve appears structurally normal. 16. Mild tricuspid regurgitation present. 17. There is mild pulmonary hypertension. 18. The right ventricular systolic pressure, as measured by Doppler, is 41.92mmHg. 19. There is no pulmonic regurgitation present. 20. The aortic root size is normal. 21. Normal inferior vena cava with normal inspiratory collapse consistent with estimated right atrial pressure of 5 mmHg. 22. There is no pericardial effusion. PLUSH WEAVER: Meredith Sparrow RDCS
[2019-10-21] MEDS: DILTIAZEM 125 MG in SODIUM CHLORIDE 0.9% 100 ML IV SCH (13:52)
--- NOTE | 2019-10-21 15:57 | P.GSCN ---
History of Present Illness Consult date: 10/21/19 Reason for Consult: Known severe mitral regurgitation Requesting physician: Gregory Silva History of present illness: This is a thin, frail 78-year-old female patient to follow send an outpatient basis with Dr. Loretta Diana and Dr. Posada. She has a previous medical history of severe mitral regurgitation with chordae rupture per DONALDO, chronic systolic heart failure, chronic atrial fibrillation on Eliquis for anticoagulation, hypertension, hyperlipidemia, and multiple hospitalizations at [facility] recently for heart failure. She had been experiencing increasing shortness of breath and palpitations, and presented to [facility] via EMS yesterday. She had no other aggravating or alleviating symptoms. She was found to be in atrial fibrillation with rapid ventricular response. White blood cell count was normal, BUN 40, creatinine 1.18, troponin was negative, and BNP was 10,100. Chest x-ray revealed no acute cardiopulmonary process. She was felt to be in acute heart failure and was initiated on IV Cardizem and IV Lasix, currently states she does feel her breathing is better. She was to see Dr. Maurisio Parnell this Saturday10/23/19 for consultation regarding her mitral regurgitation. Consultation was placed for cardiothoracic surgery to see her while hospitalized. Review of Systems Review of systems was completed and was negative except as noted - Cardiovascular Reports dyspnea on exertion, Reports irregular heart beat, Reports palpitations - Respiratory Reports dyspnea Past Medical History Past Medical History: Atrial Fibrillation, Heart Failure, Hyperlipidemia, Hypertension Additional Past Medical History / Comment(s): colitis, states has been SOB in the last few weeks. History of Any Multi-Drug Resistant Organisms: None Reported Past Surgical History: Appendectomy, Hysterectomy Past Anesthesia/Blood Transfusion Reactions: No Reported Reaction Past Psychological History: No Psychological Hx Reported Smoking Status: Never smoker Past Alcohol Use History: None Reported Past Drug Use History: None Reported - Past Family History Mother Family Medical History: No Reported History Brother(s) Family Medical History: Cancer Additional Family Medical History / Comment(s): Non-Hodgkins Lymphoma Medications and Allergies Home Medications Medication Instructions Recorded Confirmed Type Aspirin [Adult Low Dose Aspirin EC] 81 mg PO DAILY 10/05/15 10/20/19 History Pantoprazole Sodium [Protonix] 40 mg PO DAILY 10/05/15 10/20/19 History Apixaban [Eliquis] 2.5 mg PO BID 10/20/19 10/20/19 History Atorvastatin [Lipitor] 40 mg PO HS 10/20/19 10/20/19 History Cyclobenzaprine [Flexeril] 10 mg PO BID PRN 10/20/19 10/20/19 History Diltiazem Oral [Cardizem Oral] 60 mg PO Q8H 10/20/19 10/20/19 History Furosemide [Lasix] 20 mg PO HS 10/20/19 10/20/19 History Furosemide [Lasix] 40 mg PO QAM 10/20/19 10/20/19 History Metoprolol Tartrate [Lopressor] 12.5 mg PO BID 10/20/19 10/20/19 History Pantethine 450mg 450 mg PO DAILY 10/20/19 10/20/19 History Potassium Chloride [Klor-Con 20] 20 meq PO DAILY 10/20/19 10/20/19 History Vit C/E/Zn/Coppr/Lutein/Zeaxan 1 cap PO BID 10/20/19 10/20/19 History [Preservision Areds 2 Softgel] Allergies Allergy/AdvReac Type Severity Reaction Status Date / Time adhesive Allergy Rash/Hives Verified 10/20/19 17:45 famotidine [From Pepcid] Allergy Rash/Hives Verified 10/20/19 17:22 Surgical - Exam Vital Signs Temp Pulse Resp BP Pulse Ox 97.3 F L 133 H 24 124/87 98 10/20/19 14:35 10/20/19 14:35 10/20/19 14:35 10/20/19 14:35 10/20/19 14:35 - General well developed, no distress, no pain, cachectic - Eyes PERRL, normal ocular movement - ENT decreased hearing, dentures - Respiratory Lungs sounds diminished bilaterally. Respirations even, nonlabored. Currently on room air with oxygen saturation 94%. No chest wall deformities. No clubbing or cyanosis present. - Cardiovascular S1, S2 present. Positive systolic murmur appreciated. Irregular rate and rhythm, atrial fibrillation with heart rate ranging from 80s to the 130s. Palpable peripheral pulses bilaterally. No edema present. No calf pain or tenderness noted. - Abdomen Abdomen: soft, non tender, bowel sounds - Genitourinary Deferred - Rectum Deferred - Integumentary no rash, no growths - Neurologic normal coordination, normal sensation - Musculoskeletal normal posture - Psychiatric oriented to time, oriented to person, oriented to place, speech is normal, memory intact Results - Labs 10/21/19 06:00 10/21/19 06:00 Abnormal Lab Results - Last 24 Hours (Table) 10/21/19 10/21/19 Range/Units 06:00 06:00 RBC 3.64 L (3.80-5.40) m/uL Potassium 3.4 L (3.5-5.1) mmol/L BUN 34 H (7-17) mg/dL Creatinine 1.15 H (0.52-1.04) mg/dL Diabetes panel 10/21/19 Range/Units 06:00 Sodium 139 (137-145) mmol/L Potassium 3.4 L (3.5-5.1) mmol/L Chloride 104 (98-107) mmol/L Carbon Dioxide 27 (22-30) mmol/L BUN 34 H (7-17) mg/dL Creatinine 1.15 H (0.52-1.04) mg/dL Glucose 95 (74-99) mg/dL Calcium 8.6 (8.4-10.2) mg/dL Thyroid panel 10/20/19 Range/Units 14:50 TSH 3.240 (0.465-4.680) mIU/L Calcium panel 10/21/19 Range/Units 06:00 Calcium 8.6 (8.4-10.2) mg/dL Pituitary panel 10/20/19 10/21/19 Range/Units 14:50 06:00 Sodium 139 (137-145) mmol/L Potassium 3.4 L (3.5-5.1) mmol/L Chloride 104 (98-107) mmol/L Carbon Dioxide 27 (22-30) mmol/L BUN 34 H (7-17) mg/dL Creatinine 1.15 H (0.52-1.04) mg/dL Glucose 95 (74-99) mg/dL Calcium 8.6 (8.4-10.2) mg/dL TSH 3.240 (0.465-4.680) mIU/L Adrenal panel 10/21/19 Range/Units 06:00 Sodium 139 (137-145) mmol/L Potassium 3.4 L (3.5-5.1) mmol/L Chloride 104 (98-107) mmol/L Carbon Dioxide 27 (22-30) mmol/L BUN 34 H (7-17) mg/dL Creatinine 1.15 H (0.52-1.04) mg/dL Glucose 95 (74-99) mg/dL Calcium 8.6 (8.4-10.2) mg/dL - Imaging Chest x-ray: report reviewed, image reviewed EKG: image reviewed Additional studies: Heart catheterization, DONALDO, TTE films reviewed Assessment and Plan Assessment: 1. Severe mitral regurgitation with ruptured chordae per DONALDO 2. Atrial fibrillation with rapid ventricular response on admission, history of chronic atrial fibrillation on Eliquis for anticoagulation 3. Acute on chronic systolic heart failure, EF 30-35% 4. Hypertension 5. Hyperlipidemia 6. Multiple hospitalizations recently for heart failure Plan: The patient was seen and examined at the bedside in the emergency room. Family was present. Chart/diagnostics were reviewed. Case to be discussed with Dr. Parnell who will be here on Saturday and will see this patient. At this time we recommend continuing heart rate control with IV Cardizem and beta cayetano therapy, management of heart failure per cardiology. The usual perioperative course of mitral valve repair was discussed in detail with the patient and her family, risks and benefits were reviewed, all questions were answered. The patient and family would like to think about surgery. If they are agreeable, we will order preoperative testing. Continued medical management of other comorbidities per primary care service. More recommendations to follow regarding mitral valve repair. Thank you Dr. Silva for this consult. We look forward to working with you in the care of your patient. Time with Patient: Greater than 30
--- NOTE | 2019-10-21 18:38 | PN ---
PROGRESS NOTE DATE OF SERVICE: 10/21/2019 This 78-year-old woman who was admitted with atrial fibrillation with fast ventricular rate also had CHF. The patient also had a history of moderate severe mitral regurgitation. The patient is on Cardizem drip. The heart rate is still elevated. A 2D echo with Doppler done today by Cardiology. Cardiology following the patient closely. Cardiology showed ejection fraction 30 to 35% and severe mitral regurgitation. The cardiothoracic surgery evaluation also being sought today this morning and Dr. Parnell will evaluate the patient on Saturday. The possibility of surgery is being considered. PAST MEDICAL HISTORY: Reviewed. REVIEW OF SYSTEMS: Cardiovascular system: As mentioned earlier. Respiration: As mentioned earlier. GI as mentioned earlier. no dysuria. Nervous system: No numbness or weakness. MEDICATIONS: Reviewed and include: 1. Tylenol p.r.n. 2. Xanax 0.5 t.i.d. 3. Eliquis 2.5 mg b.i.d. 4. Aspirin 320 mg daily. 5. Flexeril 10 mg p.o. b.i.d. 6. Cardizem. 7. Lasix 40 mg IV b.i.d. 8. Lopressor 12.5 mg b.i.d. 9. Narcan. 10.Nitro bid ointment. 11.Protonix. 12.K-Dur 20 mEq. PHYSICAL EXAM: The patient is alert and oriented times three. Pulse 94, blood pressure 127/79, respirations 18, temperature 97.4, pulse ox 94% on room air. HEENT: Conjunctivae normal. NECK: No JVD. CARDIOVASCULAR: S1, S2 muffled. Irregular ejection systolic murmur. RESPIRATORY: Breath sounds diminished in the bases. A few scattered rhonchi and crackles. ABDOMEN: Soft, nontender. LEGS are no edema. No swelling. CENTRAL NERVOUS SYSTEM: No focal deficits. LABORATORY DATA: WBC 8.3, hemoglobin 11.4. Sodium 130. Potassium 3.4. Creatinine is 1.15. ASSESSMENT: 1. Atrial fibrillation with fast ventricular rate, present on admission on Cardizem drip. 2. Congestive heart failure, acute exacerbation, with acute on chronic systolic dysfunction, ejection fraction about 30-35 percent. 3. Severe mitral regurgitation. 4. Increased creatinine with chronic kidney stage III. 5. Anemia, normocytic anemia of chronic disease. 6. Mild to moderate protein calorie malnutrition with body BMI of 17.4. 7. Hypertension. 8. Hyperlipidemia. 9. History of colitis. 10.History of appendectomy. 11.History of hysterectomy. RECOMMENDATIONS AND DISCUSSION: Recommend to continue current medications, management and symptomatic treatment. Continue the Cardizem. Continue the beta blockers. Continue with repeat labs. Creatinine is stable at this time. Continue with a small dose of Lasix 40 IV b.i.d. Resume the home medications. Prognosis guarded because of multiple complex medical issues. Further recommendations to follow. See orders for details. Cardiology and cardiothoracic input appreciated. Further recommendations to follow. MMODL / IJN: [id number] /
[2019-10-21] MEDS: ATORVASTATIN 40 MG TAB PO SCH (20:20)
[2019-10-21] MEDS: METOPROLOL TARTRATE 12.5 MG TAB PO SCH (20:20)
[2019-10-21] MEDS: VIT A,C & E-LUTEIN-MINERALS 1 EACH TAB PO SCH (21:04)
[2019-10-22] MEDS: DILTIAZEM 125 MG in SODIUM CHLORIDE 0.9% 100 ML IV SCH (00:28)
[2019-10-22 01:56] LABS: Appearance,Urine Clear (Clear); Bilirubin,Urine Negative (Negative); Blood,Urine Negative (Negative); Color,Urine Yellow; Glucose,Urine (UA) Negative (Negative); Ketones,Urine Negative (Negative); Leukocyte Esterase,Urine Negative (Negative); Nitrite,Urine Negative (Negative); PH, Urine 5.5 (5.0-8.0); Protein,Urine Trace (Negative); Specific Gravity,Urine 1.013 (1.001-1.035); Urobilinogen,Urine <2.0 mg/dL (<2.0)
[2019-10-22] MEDS: FUROSEMIDE 10 MG/ML 4 ML VIAL IV SCH ×2 (05:26→18:06)
[2019-10-22 06:29] LABS: Basophils % (A) 0 %; Eosinophils # (A) 0.2 k/uL (0-0.7); Eosinophils % (A) 2 %; HCT 35.4 % (34.0-46.0); HGB 11.7 gm/dL (11.4-16.0); Lymphocytes # (A) 1.8 k/uL (1.0-4.8); Lymphocytes % (A) 25 %; MCH 31.7 pg (25.0-35.0); MCV 96.2 fL (80.0-100.0); Mean Platelet Volume 8.8; Monocytes # (A) 0.4 k/uL (0-1.0); Monocytes % (A) 5 %; Neutrophils # (A) 4.6 k/uL (1.3-7.7); Neutrophils % (A) 65 %; Platelet Count 167 k/uL (150-450); RBC 3.68 m/uL (3.80-5.40); RDW 14.5 % (11.5-15.5); WBC 7.1 k/uL (3.8-10.6)
[2019-10-22] MEDS: PANTOPRAZOLE 40 MG TABLET PO SCH (06:33)
[2019-10-22 06:40] LABS: Albumin 3.7 g/dL (3.5-5.0); Calcium 8.9 mg/dL (8.4-10.2); Magnesium 1.8 mg/dL (1.6-2.3); Potassium 3.8 mmol/L (3.5-5.1); Total Protein 6.7 g/dL (6.3-8.2)
[2019-10-22 06:44] LABS: INR 1.1 (<1.2); Partial Thromboplastin Time 27.6 sec (22.0-30.0); Prothrombin Time 11.3 sec (9.0-12.0)
[2019-10-22] MEDS: ASPIRIN 81 MG PO SCH (08:37)
[2019-10-22] MEDS: POTASSIUM CHLORIDE ER 20 MEQ TAB.ER PO SCH (08:38)
[2019-10-22] MEDS: VIT A,C & E-LUTEIN-MINERALS 1 EACH TAB PO SCH ×2 (08:39→22:03)
[2019-10-22] MEDS: METOPROLOL TARTRATE 12.5 MG TAB PO SCH (08:39)
[2019-10-22] MEDS: APIXABAN 2.5 MG TABLET PO SCH ×2 (08:39→22:03)
--- NOTE | 2019-10-22 09:46 | US ---
EXAMINATION TYPE: US carotid duplex BILAT DATE OF EXAM: 10/22/2019 COMPARISON: NONE CLINICAL HISTORY: preop mitral valve repair. EXAM MEASUREMENTS: RIGHT: Peak Systolic Velocity (PSV) cm/sec ----- Right CCA: 41.8 ----- Right ICA: 77.1 ----- Right ECA: 173.3 ICA/CCA ratio: 1.8 RIGHT: End Diastole cm/sec ----- Right CCA: 17.4 ----- Right ICA: 25.4 ----- Right ECA: 24.6 LEFT: Peak Systolic Velocity (PSV) cm/sec ----- Left CCA: 46.8 ----- Left ICA: 199.6 ----- Left ECA: 86.6 ICA/CCA ratio: 4.3 LEFT: End Diastole cm/sec ----- Left CCA: 13.8 ----- Left ICA: 54.6 ----- Left ECA: 10.7 VERTEBRALS (direction of flow): Right Vertebral: Antegrade Left Vertebral: Antegrade Rhythm: Arrhythmia Incidental finding of complex cyst noted in left thyroid =0.9 x 0.9 x 0.6cm. Significant wall plaque noted in bilateral CCA , and ECA and ICA bifurcation with abnormally elevated PSV in Right ECA and in Left ICA. Report called to the patient's nurse. IMPRESSION: 1. Incidental note of a complex nodule left thyroid measuring 9 mm. 2. Atherosclerotic plaque with findings suggestive of a severe left ICA stenosis. Report called to [facility] patient's nurse immediately. 3. Cardiac dysrhythmia. Criteria for Assigning % of Stenosis / Diameter reduction (Estimation based on the indirect measurements of the internal carotid artery velocities (ICA PSV). 1. Normal (no stenosis)=ICA PSV < 125 cm/s: ratio < 2.0: ICA EDV<40 cm/s. 2. Less than 50% stenosis=ICA PSV < 125 cm/s: ratio < 2.0: ICA EDV<40 cm/s. 3. 50 to 69% stenosis=ICA PSV of 125 to 230 cm/s: ration 2.0 ? 4.0: ICA EDV 40-100 cm/s. 4. Greater than 70% stenosis to near occlusion= ICA PSV > 230 cm/s: ratio > 4.0: ICA EDV > 100 cm/s. 5. Near occlusion= ICA PSV velocities may be low or undetectable: variable ratio and ICA EDV. 6. Total occlusion=unable to detect flow.
[2019-10-22] MEDS: NITROGLYCERIN OINT 1 INCH/GM PACKET TOPICAL SCH ×4 (11:02→22:17)
--- NOTE | 2019-10-22 11:29 | P.PN ---
Subjective Progress Note Date: 10/22/19 Principal diagnosis: Severe mitral regurgitation per TTE, acute on chronic systolic heart failure with EF 30-35%, atrial fibrillation with rapid ventricular response. Previous medical history of moderate to severe mitral regurgitation on DONALDO with possible ruptured chordae, chronic atrial fibrillation on Eliquis for anticoagulation, chronic systolic heart failure, hypertension, hyperlipidemia, and multiple recent hospitalizations for heart failure The patient is currently sitting up in bed in no acute distress. Does state that getting to the bathroom this morning caused her to be short of breath, felt like she needed more oxygen. Denies any chest pain. Still is unsure about whether or not she wants to have mitral valve surgery, wants to wait until she hears from the surgeon. Objective - Vital Signs Vital signs: Vital Signs Temp 97.6 F 10/22/19 03:51 Pulse 101 H 10/22/19 03:52 Resp 16 10/22/19 03:52 BP 134/79 10/22/19 03:51 Pulse Ox 91 L 10/22/19 03:51 Intake & Output 10/21/19 10/22/19 10/22/19 18:59 06:59 18:59 Intake Total 125 50 Balance 125 50 Weight 43.6 kg Intake: Intake, IV Titration 125 50 Amount Diltiazem 125 mg In 125 50 Sodium Chloride 0.9% 100 ml @ 10 MG/HR 10 mls/hr IV .[id number] [facility] Rx#: [id number] Other: Voiding Method Toilet # Voids 2 - Constitutional General appearance: Present: cooperative, no acute distress, thin - Respiratory Details: Lungs sounds diminished bilaterally. Respirations even, nonlabored. Currently on 3 L nasal cannula per patient request. Only able to achieve 500 mL on her incentive spirometry this morning - Cardiovascular Details: S1, S2 present. Positive systolic murmur appreciated. Irregular rate and rhyt hm, atrial fibrillation with heart rate in the low 100s. Palpable peripheral pulses bilaterally. No edema present. No calf pain or tenderness noted. - Gastrointestinal Gastrointestinal Comment(s): Abdomen soft, nontender, nondistended. Active bowel sounds present 4 quadrants. Tolerating breakfast. - Genitourinary Genitourinary Comment(s): Continues to void - Integumentary Integumentary Comment(s): Skin is warm and dry with evidence of good perfusion - Neurologic Neurologic: Present: CNII-XII intact - Musculoskeletal Musculoskeletal: Present: gait normal, strength equal bilaterally - Psychiatric Psychiatric: Present: A&O x's 3, appropriate affect, intact judgment & insight - Allied health notes Allied health notes reviewed: nursing - Labs CBC & Chem 7: 10/22/19 06:08 10/22/19 06:08 Labs: Abnormal Lab Results - Last 24 Hours (Table) 10/21/19 10/22/19 10/22/19 Range/Units 23:00 06:08 06:08 RBC 3.68 L (3.80-5.40) m/uL BUN 30 H (7-17) mg/dL Creatinine 1.07 H (0.52-1.04) mg/dL Glucose 105 H (74-99) mg/dL HDL Cholesterol 38 L (40-60) mg/dL Urine Protein Trace H (Negative) Assessment and Plan Assessment: 1. Severe mitral regurgitation per TTE, previously documented moderate to severe mitral regurgitation with ruptured chordae on DONALDO, present since at least 2016 per DONALDO completed at that time 2. Atrial fibrillation with rapid ventricular response on admission, history of chronic atrial fibrillation on Eliquis for anticoagulation 3. Acute on chronic systolic heart failure, EF 30-35% 4. Severe left internal carotid stenosis 5. Mild lung disease with FEV1 62% of predicted 6. Hypertension 7. Hyperlipidemia 8. Multiple hospitalizations recently for heart failure Plan: 1. Although the patient does not want to make a decision about surgery until seen by the surgeon, she is agreeable to preoperative testing, which has been ordered. 2. Once preoperative testing has been completed we will complete an STS risk score and discuss with the patient. 3. Recommend continuing heart rate control with IV Cardizem and beta cayetano therapy. 4. Management of acute heart failure per cardiology. 5. Will need dental clearance prior to valve surgery. Patient reports she does see a dentist regularly, we will try to get dental clearance. 6. Did discuss with the patient and her family that valve surgery is not emergent, and that she needs her current acute issues to be optimized prior to surgery. 7. Will need to have Eliquis held 3-5 days prior to surgery. 8. Medical management of other comorbidities per primary care service 9. More recommendations to follow regarding mitral valve repair Time with Patient: Greater than 30
--- NOTE | 2019-10-22 13:44 | P.PN ---
Subjective Progress Note Date: 10/22/19 This is an 78-year-old female with history of severe mitral regurgitation, congestive heart failure, persistent atrial fibrillation who presented to the hospital with symptoms of shortness of breath and palpitations. She has known moderate to severe mitral regurgitation with a ruptured chordae t endon a and is awaiting evaluation by cardiothoracic surgery for possible mitral valve repair. She presented to the hospital as mentioned with symptoms of shortness of breath and palpitations and was found to be in atrial fibrillation with a rapid ventricular response. Patient was seen and examined this morning, continues to be in atrial fibrillation her heart rate today is in the high 80s. Blood pressure 132/70, 93% on 3 L of oxygen. White blood cell count 7.1, hemoglobin 11.7, platelet count 167. Sodium 139, potassium 3.8, BUN 30, creatinine 1.0, magnesium 1.8. A cardiogram with Doppler study revealed an ejection fraction of 30-35%, severe mitral regurgitation. Because of the signif icantly reduced LV function, we'll discontinue the Cardizem and up the dose of beta cayetano. Objective - Vital Signs Vital signs: Vital Signs Temp 97.7 F 10/22/19 11:55 Pulse 104 H 10/22/19 11:55 Resp 24 10/22/19 11:55 BP 133/77 10/22/19 11:55 Pulse Ox 93 L 10/22/19 11:55 Intake & Output 10/21/19 10/22/19 10/22/19 18:59 06:59 18:59 Intake Total 125 50 720 Output Total 75 Balance 125 50 645 Weight 43.6 kg 43.6 kg Intake: Intake, IV Titration 125 50 Amount Diltiazem 125 mg In 125 50 Sodium Chloride 0.9% 100 ml @ 10 MG/HR 10 mls/hr IV .[id number] [facility] Rx#: [id number] Oral 720 Output: Urine 75 Other: Voiding Method Toilet Toilet # Voids 2 1 - Exam PHYSICAL EXAMINATION: GENERAL: 78-year-old female in no acute distress at the time of my examination HEENT: Head is atraumatic, normocephalic. Pupils equal, round. Sclera anicteric. Conjunctiva are clear. Mucous membranes of the mouth are moist. Neck is supple. There is no elevated jugular venous pressure. No carotid bruit is heard. HEART EXAMINATION: Heart S1 and S2 irregularly irregular a grade 4/6 systolic murmur is heard CHEST EXAMINATION:[ Lungs are clear to auscultation and precussion. No chest wall tenderness is noted on palpation or with deep breathing.] ABDOMEN: [ Soft, nontender. Bowel sounds are heard. No organomegaly noted]. EXTREMITIES:[ 2+ peripheral pulses with no evidence of peripheral edema and no calf tenderness noted]. NEUROLOGIC [patient is awake, alert and oriented X3] . - Labs CBC & Chem 7: 10/22/19 06:08 10/22/19 06:08 Labs: Abnormal Lab Results - Last 24 Hours (Table) 10/21/19 10/22/19 10/22/19 Range/Units 23:00 06:08 06:08 RBC 3.68 L (3.80-5.40) m/uL BUN 30 H (7-17) mg/dL Creatinine 1.07 H (0.52-1.04) mg/dL Glucose 105 H (74-99) mg/dL HDL Cholesterol 38 L (40-60) mg/dL Urine Protein Trace H (Negative) Microbiology - Last 24 Hours (Table) 10/22/19 06:36 Nasal Screen MRSA/MSSA - Preliminary Nasal Swab Assessment and Plan Plan: Assessment and plan #1 systolic congestive heart failure acute on chronic #2 persistent atrial fibrillation #3 moderate to severe mitral regurgitation Plan We'll discontinue the Cardizem and increase the dose of beta cayetano. Continue the rest of the patient's medications. DNP note has been reviewed, I agree with a documented findings and plan of care. Patient was seen and examined.
[2019-10-22 13:59] LABS: Hemoglobin A1C 5.1 % (4.0-6.0)
[2019-10-22] MEDS ORDERED: DILTIAZEM ORAL 30 MG TAB PO SCH (14:00)
[2019-10-22 14:31] LABS: Hepatitis A Antibody IgM Non-Reactive (Non-Reactive); Hepatitis B Core IgM Non-Reactive (Non-Reactive); Hepatitis B Surface Antigen Non-Reactive (Non-Reactive); Hepatitis C IgG Antibody Non-Reactive (Non-Reactive)
[2019-10-22] MEDS ORDERED: DIPHENOX-ATROP 2.5-0.025 MG 1 EACH TAB PO PRN (18:08)
--- NOTE | 2019-10-22 20:09 | PN ---
PROGRESS NOTE DATE OF SERVICE: 10/22/2019 This 78-year-old woman who was admitted with atrial fibrillation with fast ventricular rate also had other medical issues including CHF, acute exacerbation, severe mitral regurgitation. The patient also found to have severe carotid stenosis in the ultrasound. Multiple consultants including cardiothoracic, cardiology following the patient closely. The patient being closely monitored. The patient being followed by Dr. Diana in the outpatient setting. PAST MEDICAL HISTORY: Reviewed. REVIEW OF SYSTEMS: Cardiovascular system: As mentioned earlier. GI no nausea or vomiting. : No dysuria or retention. CENTRAL NERVOUS SYSTEM: No numbness or weakness. CURRENT MEDICATIONS: Reviewed and include: 1. Tylenol 500 mg q.6h p.r.n. 2. Xanax 0.5 t.i.d. 3. Eliquis 2.5 mg b.i.d. 4. Aspirin 81 mg p.o. daily. 5. Lipitor 40 mg q.h.s. 6. Flexeril 10 mg p.o. b.i.d. 7. Lasix 40 mg IV b.i.d. 8. Lopressor 50 mg p.o. b.i.d. 9. Naloxone. 11.Protonix. 12.K-Dur 20 mEq. PHYSICAL EXAM: Patient is alert and oriented x3. Pulse is 104. Blood pressure 133/77, respirations 24. Temperature 97.7, pulse ox 93 percent on 3 L. HEENT: Conjunctivae normal. NECK: No JVD. CARDIOVASCULAR: S1, S2 muffled. RESPIRATIONS: Breath sounds diminished in the bases. Bilateral scattered rhonchi and crackles. ABDOMEN: Soft, nontender. No mass palpable. LEGS: No edema. No swelling. NERVOUS SYSTEM: No focal deficits. LABS: WBC 7.2, hemoglobin 11.7, sodium 130, potassium 3.8. Creatinine is 1.07 and is 38. UA noted. Hepatitis panel is nonreactive. ASSESSMENT: 1. Atrial fibrillation with fast ventricular rate, present on admission, on Cardizem drip. 2. Congestive heart failure acute exacerbation with acute on chronic systolic dysfunction, ejection fraction 30 to 35%. 3. Severe mitral regurgitation. 4. Complex nodule left thyroid measuring 9 mm in the ultrasound. 5. Severe left internal carotid artery stenosis. 6. Anemia, normocytic anemia of chronic disease. 7. Mild to moderate protein calorie malnutrition with BMI of 17.4. 8. Hypertension. 9. Hyperlipidemia. 10.History of colitis. 11.History of appendectomy. 12.History of hysterectomy. RECOMMENDATIONS AND DISCUSSION: Recommend to continue current medications, monitoring, management and symptomatic treatment. Otherwise, at this time, I recommend continue with current medications. Continue with diuretics. Continue with Cardizem. The patient has been on amiodarone previously which was stopped. We will follow the patient closely with Cardiology and Cardiothoracic surgery. The patient also had significant internal carotid stenosis also. Guarded prognosis. Further recommendations to follow. MMODL / IJN: [id number] / MTDD
--- NOTE | 2019-10-22 20:46 | CONS ---
CONSULTATION PULMONARY/CRITICAL CARE CONSULTATION: DATE OF SERVICE: 10/22/2019 REASON FOR CONSULTATION: Evaluation of lung function prior to possible mitral valve surgery. This is an 78-year-old female who was sent by Dr. Loretta Diana and Dr. Posada to be evaluated for possible mitral valve surgery. She has a history of severe mitral regurgitation with ruptured chordae tendineae. She had a DONALDO which revealed this. She also has a history of chronic systolic heart failure, chronic atrial fibrillation, currently on Eliquis, benign essential hypertension, hyperlipidemia, and multiple hospitalizations at [facility] recently for heart failure. She does have increasing shortness of breath and palpitations. She was brought to [facility] on October 20 via EMS. Anyway, I am asked to see her for the possibility of any underlying lung disease. She apparently did have a PFT that was not in the chart. She was found on evaluation here to have atrial fibrillation with RVR. She denies a prior history of any lung disease. She is a lifelong nonsmoker. She specifically denies asthma, COPD, emphysema, chronic bronchitis or any scarring condition such as pulmonary fibrosis. She has never actually had a difficult time with her breathing other than when her heart "had a whack." She is going to see Dr. Parnell tomorrow for consideration of possible mitral valve surgery. She has not made up her mind as to whether not she is going to agree to have surgery. She is a very frail patient. Again, no history of any lung issues. PAST MEDICAL HISTORY: Her past medical history is positive for atrial fibrillation, CHF, hyperlipidemia, hypertension, colitis, and shortness of breath related to her underlying cardiac disease. SURGICAL HISTORY: Surgical history includes previous appendectomy and hysterectomy. SOCIAL HISTORY: Significant in that she is a lifelong nonsmoker. She denies any alcohol or illicit drug use. FAMILY HISTORY: Positive for a brother with non-Hodgkin's lymphoma and mother with no health history at all. HOME MEDICATIONS: Home medications are reviewed. She was on aspirin, Protonix, Eliquis, Lipitor, Flexeril, Cardizem, Lasix, Lopressor, Pantethine, potassium chloride and vitamins. ALLERGIES: ADHESIVE TAPE and FAMOTIDINE. REVIEW OF SYSTEMS: CONSTITUTIONAL: Negative. NEUROLOGIC: Negative. HEENT: Negative. CARDIOVASCULAR: Shortness of breath. PULMONARY: Shortness of breath. GI: Negative. : Negative. RHEUMATOLOGIC: Negative. IMMUNOLOGIC: Negative. ENDOCRINOLOGIC: Negative. DERMATOLOGIC: Negative. PHYSICAL EXAMINATION: VITAL SIGNS: Current vital signs are reviewed. Temperature is 97.7, heart rate 89, respiratory rate 24, blood pressure 133/77, mean 95, 3-liter saturation 93%. GENERAL APPEARANCE: Appears in no acute distress. HEENT EXAMINATION: Grossly unremarkable. NECK: Supple. Full range of motion. No adenopathy. Neck veins are flat. CARDIOVASCULAR EXAMINATION: Irregular rhythm and rate. She is clearly in atrial fibrillation. Heart rate is about 85 beats per minute. S1, S2 normal. There is a systolic murmur noted. It is soft. LUNGS: Mostly clear breath sounds. No wheezes, rhonchi or crackles. ABDOMEN: Soft. Bowel sounds are heard. No masses or tenderness. EXTREMITIES: Intact. No cyanosis, clubbing or edema. SKIN: Without rash. NEUROLOGIC: Neurologic examination is brief but nonfocal. LABS: Reviewed. White count 7.1, hemoglobin 11.7, hematocrit 35.4, platelet count 167,000. PT, INR, PTT all normal. Sodium 139, potassium 3.8, chloride 105. CO2 27. Anion gap is 7. BUN and creatinine were 30 and 1.07. The rest of the comprehensive metabolic profile is normal. N-terminal proBNP was 10,100. Albumin 3.7. TSH is 2.840. Urine is negative. Hepatitis serology is negative. ASSESSMENT: 1. Shortness of breath, chronic, secondary to mitral valve disease as well as atrial fibrillation with rapid ventricular response. 2. History of valvular heart disease with anticipated and possible mitral valve repair/replacement. 3. History of ruptured chordae tendineae by transesophageal echocardiogram. 4. History of systolic congestive heart failure. 5. Chronic atrial fibrillation. 6. History of hypertension. 7. History of hyperlipidemia. 8. No history of any lung disease. PLAN: The patient apparently had a pulmonary function test. I have not seen it as yet. Additional recommendations and suggestions are forthcoming. I do not believe her shortness of breath relates to underlying intrinsic pulmonary disease. She is a lifelong nonsmoker. Denies any COPD, asthma, emphysema, chronic bronchitis or scarring lung conditions. Additional recommendations and suggestions are forthcoming. Will continue to follow. Medications are reviewed. MMODL / IJN: [id number] /
[2019-10-22] MEDS: METOPROLOL TARTRATE 50 MG TAB PO SCH (20:53)
[2019-10-22] MEDS ORDERED: METOPROLOL TARTRATE 25 MG TAB PO SCH (21:00)
[2019-10-22] MEDS: ATORVASTATIN 40 MG TAB PO SCH (22:03)
[2019-10-23] MEDS: FUROSEMIDE 10 MG/ML 4 ML VIAL IV SCH (04:29)
[2019-10-23] MEDS: PANTOPRAZOLE 40 MG TABLET PO SCH (05:59)
[2019-10-23 06:48] LABS: Basophils % (A) 0 %; Eosinophils # (A) 0.2 k/uL (0-0.7); Eosinophils % (A) 3 %; HCT 36.8 % (34.0-46.0); Hypochromasia Slight; Lymphocytes # (A) 2.3 k/uL (1.0-4.8); Lymphocytes % (A) 27 %; MCH 31.7 pg (25.0-35.0); MCHC 32.7 g/dL (31.0-37.0); Mean Platelet Volume 8.9; Monocytes # (A) 0.4 k/uL (0-1.0); Monocytes % (A) 5 %; Neutrophils # (A) 5.3 k/uL (1.3-7.7); Neutrophils % (A) 62 %; Platelet Count 187 k/uL (150-450); RDW 14.7 % (11.5-15.5); WBC 8.5 k/uL (3.8-10.6)
[2019-10-23 06:59] LABS: Calcium 9.1 mg/dL (8.4-10.2); Potassium 3.8 mmol/L (3.5-5.1)
[2019-10-23] MEDS: ASPIRIN 81 MG PO SCH (08:21)
[2019-10-23] MEDS: METOPROLOL TARTRATE 50 MG TAB PO SCH ×3 (08:21→21:27)
[2019-10-23] MEDS: POTASSIUM CHLORIDE ER 20 MEQ TAB.ER PO SCH (08:21)
[2019-10-23] MEDS: APIXABAN 2.5 MG TABLET PO SCH ×2 (08:21→20:54)
[2019-10-23] MEDS: VIT A,C & E-LUTEIN-MINERALS 1 EACH TAB PO SCH ×2 (08:21→20:53)
[2019-10-23] MEDS: NITROGLYCERIN OINT 1 INCH/GM PACKET TOPICAL SCH ×2 (08:24→12:25)
--- NOTE | 2019-10-23 08:29 | P.PN ---
Subjective Progress Note Date: 10/23/19 Principal diagnosis: Severe mitral regurgitation per TTE, acute on chronic systolic heart failure with EF 30-35%, atrial fibrillation with rapid ventricular response. Previous medical history of moderate to severe mitral regurgitation on DONALDO with possible ruptured chordae, chronic atrial fibrillation on Eliquis for anticoagulation, chronic systolic heart failure, hypertension, hyperlipidemia, and multiple recent hospitalizations for heart failure The patient is currently sitting up in bed in no acute distress. Still complains of shortness of breath although she does state that oxygen makes her feel better. Denies any chest pain. Still is unsure about whether or not she wants to have mitral valve surgery, wants to wait until she hears from the surgeon. Objective - Vital Signs Vital signs: Vital Signs Temp 98 F 10/23/19 07:51 Pulse 132 H 10/23/19 07:51 Resp 24 10/23/19 07:51 BP 124/80 10/23/19 07:51 Pulse Ox 94 L 10/23/19 07:51 Intake & Output 10/22/19 10/23/19 10/23/19 18:59 06:59 18:59 Intake Total 2140 Output Total 175 550 Balance 1965 -550 Weight 43.6 kg 43.4 kg Intake: IV 180 .9 NS at 20 160 Diltiazem 125 mg In 20 Sodium Chloride 0.9% 100 ml @ 10 MG/HR 10 mls/hr IV .[id number] [facility] Rx#: [id number] Oral 1960 Output: Urine 175 550 Other: Voiding Method Toilet Toilet # Voids 1 1 # Bowel Movements 1 - Constitutional General appearance: Present: cooperative, no acute distress, thin - Respiratory Details: Lungs sounds diminished bilaterally. Respirations even, nonlabored. Currently on room air, oxygen saturation 948%, applies 2L NC when she feels she needs it. Able to achieve 750-1000 mL on her incentive spirometry - Cardiovascular Details: S1, S2 present. Positive systolic murmur appreciated. Irregular rate and rhythm, atrial fibrillation with heart rate in the low 100s this morning, was in the 120-130s overnight. Palpable peripheral pulses bilaterally. No edema present. No calf pain or tenderness noted. - Gastrointestinal Gastrointestinal Comment(s): Abdomen soft, nontender, nondistended. Active bowel sounds present 4 quadrants. Tolerating diet. Positive bowel movement - Genitourinary Genitourinary Comment(s): Continues to void - Integumentary Integumentary Comment(s): Skin is warm and dry with evidence of good perfusion - Neurologic Neurologic: Present: CNII-XII intact - Musculoskeletal Musculoskeletal: Present: gait normal, strength equal bilaterally - Psychiatric Psychiatric: Present: A&O x's 3, appropriate affect, intact judgment & insight - Allied health notes Allied health notes reviewed: nursing - Labs CBC & Chem 7: 10/23/19 06:07 10/23/19 06:07 Labs: Abnormal Lab Results - Last 24 Hours (Table) 10/23/19 Range/Units 06:07 BUN 38 H (7-17) mg/dL Creatinine 1.22 H (0.52-1.04) mg/dL Microbiology - Last 24 Hours (Table) 10/22/19 06:36 Nasal Screen MRSA/MSSA - Final Nasal Swab Assessment and Plan Assessment: 1. Severe mitral regurgitation per TTE, previously documented moderate to severe mitral regurgitation with ruptured chordae on DONALDO, present since at least 2016 per DONALDO completed at that time 2. Atrial fibrillation with rapid ventricular response on admission, history of chronic atrial fibrillation on Eliquis for anticoagulation 3. Acute on chronic systolic heart failure, EF 30-35% 4. Severe left internal carotid stenosis 5. Mild lung disease with FEV1 62% of predicted 6. Hypertension 7. Hyperlipidemia 8. Multiple hospitalizations recently for heart failure Plan: 1. Dr. Parnell updated with all pre-operative testing results and STS risk score. Would like acute issues optimized, will eval patient in the near future. Per patient's daughter, the patient has expressed in the recent past that she absolutely does not want open heart surgery. The patient will meet with Dr. Parnell, discuss surgery, and make final decision. 2. STS risk score discussed with the patient and family, patient is high risk for surgery. 3. Recommend heart rate control with beta cayetano therapy. 4. Management of acute heart failure per cardiology. 5. Will need dental clearance prior to valve surgery. Will attempt to get dental clearance from patient's dentist Dr. Gonsalves 6. Did discuss with the patient and her family that valve surgery is not emergent, that she needs her current acute issues to be optimized prior to surgery, and that she may be discharged to home once optimized to return for elective surgery if she decides she is willing to have surgery. 7. Will need to have Eliquis held 3-5 days prior to surgery. 8. Medical management of other comorbidities per primary care service 9. More recommendations to follow regarding mitral valve repair Time with Patient: Greater than 30
--- NOTE | 2019-10-23 11:10 | CDI ---
Documentation Clarification Form Date: 10/23/2019 10:54:36 AM From: Aurora Santiago RN, CCDS Admit Date: 10/22/2019 09:06:00 AM Patient Name: Katie Mena Visit Number: [id number] Discharge Date: ATTENTION: The Clinical Documentation Specialists (CDI) and [facility] Coding Staff appreciate your assistance in clarifying documentation. Please respond to the clarification below the line at the bottom and electronically sign. The CDI & [facility] Coding staff will review the response and follow-up if needed. Please note: Queries are made part of the Legal Health Record. If you have any questions, please contact the author of this message via ITS. Dr. Gregory Silva Mild to moderate Malnutrition has been documented in the H&P on 10/22 and ongoing progress notes and clarification is needed History/Risk Factors: CHF, Atrial fibrillation, Hypertension, Colitis Clinical Indicators: 78-year-old female per nutrition assessment on 10/22 has had a poor appetite greater than 6 months. Her nutrition intake consumed is 25- 50 %. Nutrition clinical impression is underweight with a 13% involuntary weight loss in 1 year, decreasing appetite and intake: BMI < 22 kg/m2 for person older that 65 years Labs: BUN 34, CR 1.15, GFR 45, 10/20: Total protein 6.3, Albumin 3.4 Current BMI: 16.9 (10/22 @ 13:08) Insufficient energy intake: Yes Weight Loss: Yes Treatment: Dietary Consult: Yes Monitor I/O ,response to Enlive TID In your professional opinion, can you please clarify if these findings signify one of the following conditions? Mild Protein-Calorie Malnutrition Moderate Protein-Calorie Malnutrition Other condition, please specify Unable to determine (Last Revision: March 2019) Moderate Protein-Calorie Malnutrition MTDD
--- NOTE | 2019-10-23 12:26 | P.PN ---
Subjective Progress Note Date: 10/23/19 Principal diagnosis: Pulmonary evaluation for possible mitral valve surgery On 10/23/2019 patient seen in follow-up on selective care unit, she is calm and comfortable, in no acute distress, she is currently on room air, her pulse ox of 97%, she is afebrile, hemodynamically stable, patient remains in A. fib, she is tachycardic, she is on oral anticoagulation in the form of Eliquis. Remains on IV diuretics 40 mg of Lasix every 12 hours, lung sounds reveal bibasilar crackles, no complaints of chest pain. Patient states she does have exertional dyspnea, but she states she is able to manage, and she decided not to proceed with surgery. She is waiting for Dr. Parnell to discuss her options with her. Objective - Vital Signs Vital signs: Vital Signs Temp 97.6 F 10/23/19 11:30 Pulse 120 H 10/23/19 11:30 Resp 20 10/23/19 11:30 BP 121/78 10/23/19 11:30 Pulse Ox 97 10/23/19 11:30 Intake & Output 10/22/19 10/23/19 10/23/19 18:59 06:59 18:59 Intake Total 2140 100 Output Total 175 550 400 Balance 1965 -550 -300 Weight 43.6 kg 43.4 kg Intake: IV 180 .9 NS at 20 160 Diltiazem 125 mg In 20 Sodium Chloride 0.9% 100 ml @ 10 MG/HR 10 mls/hr IV .[id number] [facility] Rx#: [id number] Oral 1960 100 Output: Urine 175 550 400 Other: Voiding Method Toilet Toilet # Voids 1 1 1 # Bowel Movements 1 - Exam GENERAL EXAM: Alert, very pleasant, 78-year-old white female on room air, with a pulse ox of 97%, comfortable in no apparent distress. HEAD: Normocephalic/atraumatic. EYES: Normal reaction of pupils, equal size. Conjunctiva pink, sclera white. NOSE: Clear with pink turbinates. THROAT: No erythema or exudates. NECK: No masses, no JVD, no thyroid enlargement, no adenopathy. CHEST: No chest wall deformity. Symmetrical expansion. LUNGS: Equal air entry with a few basilar crackles, wheeze, rhonchi or dullness. CVS: Irregular rate and rhythm, normal S1 and S2, no gallops, no murmurs, no rubs ABDOMEN: Soft, nontender. No hepatosplenomegaly, normal bowel sounds, no guarding or rigidity. EXTREMITIES: No clubbing, no edema, no cyanosis, 2+ pulses and upper and lower extremities. MUSCULOSKELETAL: Muscle strength and tone normal. SPINE: No scoliosis or deformity SKIN: No rashes CENTRAL NERVOUS SYSTEM: Alert and oriented -3. No focal deficits, tone is normal in all 4 extremities. PSYCHIATRIC: Alert and oriented -3. Appropriate affect. Intact judgment and insight. - Labs CBC & Chem 7: 10/23/19 06:07 10/23/19 06:07 Labs: Abnormal Lab Results - Last 24 Hours (Table) 10/23/19 Range/Units 06:07 BUN 38 H (7-17) mg/dL Creatinine 1.22 H (0.52-1.04) mg/dL Microbiology - Last 24 Hours (Table) 10/22/19 06:36 Nasal Screen MRSA/MSSA - Final Nasal Swab Assessment and Plan Plan: Assessment: #1. Shortness of breath chronic, secondary to severe mitral valve regurgitation and possibility of ruptured chordae #2. Acute on chronic congestive heart failure with systolic dysfunction and EF of 30-35% #3. Chronic atrial fibrillation on Eliquis, possibly with RVR #4. Hypertension #5. Hyperlipidemia #6. Multiple recent hospitalizations for acute exacerbation of congestive heart failure #7. Mild lung disease with FEV1 of 62% of predicted Plan: Patient is awaiting discussion with Dr. Parnell, she is inclined not to proceed with surgery to repair her mitral regurgitation. We were consulted in regards to pulmonary clearance and pulmonary management in case of surgery. From pulmonary perspective she is stable, and we will follow the patient on as-needed basis in case she does decide for surgery I performed a history & physical examination of the patient and discussed their management with my nurse practitioner, Elsa Aguilar. I reviewed the nurse practitioner's note and agree with the documented findings and plan of care. Lung sounds are positive for basilar rales. The findings and the impression was discussed with the patient. I attest to the documentation by the nurse practitioner. Time with Patient: Less than 30
--- NOTE | 2019-10-23 15:32 | P.PN ---
Subjective Progress Note Date: 10/23/19 This is a 78-year-old female with history of mitral regurgitation, chronic/persistent atrial fibrillation with RVR who was admitted to the hospital with increasing shortness of breath and CHF. Patient was evaluated by cardiac surgeon and was felt that patient is high-risk candidate for surgery. Patient a lso has moderate to severe carotid disease. At this time. Patient has decided to continue with medical therapy. Patient's heart rate is about 100 to 110. Lungs appeared to be relatively clear. Heart is irregular with systolic murmur. We will increase the dose of the beta cayetano. Made switch to by mouth diuretics by tomorrow. We'll repeat the chest x-ray Objective - Vital Signs Vital signs: Vital Signs Temp 97.6 F 10/23/19 11:30 Pulse 120 H 10/23/19 11:30 Resp 20 10/23/19 11:30 BP 121/78 10/23/19 11:30 Pulse Ox 97 10/23/19 11:30 Intake & Output 10/22/19 10/23/19 10/23/19 18:59 06:59 18:59 Intake Total 2140 340 Output Total 175 550 400 Balance 1964 Weight 43.6 kg 43.4 kg Intake: IV 180 .9 NS at 20 160 Diltiazem 125 mg In 20 Sodium Chloride 0.9% 100 ml @ 10 MG/HR 10 mls/hr IV .[id number] [facility] Rx#: [id number] Oral 1962 340 Output: Urine 175 550 400 Other: Voiding Method Toilet Toilet # Voids 1 1 1 # Bowel Movements 1 - Exam GENERAL EXAM: Patient is alert and oriented and doesn't appear to be in any acute distress HEENT: Normocephalic. Normal reaction of pupils, equal size, normal range of extraocular motion. No erythema or exudates in the throat. NECK: No masses, no nuchal rigidity. CHEST: No chest wall deformity. LUNGS: Equal air entry with no crackles or wheeze. HEART: S1 and S2 normal. Regular heart sounds, systolic murmur ABDOMEN: No hepatosplenomegaly, normal bowel sounds, no guarding or rigidity. SKIN: No rashes CENTRAL NERVOUS SYSTEM: No focal deficits. EXTREMITIES: No cyanosis, clubbing or edema. - Labs CBC & Chem 7: 10/23/19 06:07 10/23/19 06:07 Labs: Abnormal Lab Results - Last 24 Hours (Table) 10/23/19 Range/Units 06:07 BUN 38 H (7-17) mg/dL Creatinine 1.22 H (0.52-1.04) mg/dL Microbiology - Last 24 Hours (Table) 10/22/19 06:36 Nasal Screen MRSA/MSSA - Final Nasal Swab Assessment and Plan (1) Mitral regurgitation Current Visit: Yes Status: Acute Code(s): I34.0 - NONRHEUMATIC MITRAL (VALVE) INSUFFICIENCY SNOMED Code(s): 92687736 (2) Atrial fibrillation with RVR Current Visit: Yes Status: Acute Code(s): I48.91 - UNSPECIFIED ATRIAL FIBRILLATION SNOMED Code(s): 158027281704173 (3) Congestive heart failure Current Visit: Yes Status: Acute Code(s): I50.9 - HEART FAILURE, UNSPECIFIED SNOMED Code(s): 80909693 (4) Carotid arterial disease Current Visit: Yes Status: Acute Code(s): I77.9 - DISORDER OF ARTERIES AND ARTERIOLES, UNSPECIFIED SNOMED Code(s): 634419845 Plan: Continue current medical therapy. Increase the dose of the beta cayetano. May consider AV node ablation because of difficulty controlling heart rate. Patient also had side effects from amiodarone
[2019-10-23] MEDS: FUROSEMIDE 40 MG TAB PO SCH (15:43)
--- NOTE | 2019-10-23 16:01 | P.GSCN ---
History of Present Illness Consult date: 10/23/19 History of present illness: The patient is an 78-year-old female who presented to the hospital with worsening shortness of breath and occasional chest discomfort with movement. She is known to have severe mitral regurgitation and was planning on seeing a cardiothoracic surgeon in the near future. While she's been here she's had workup and evaluation for preoperative planning in the event she does decide to go forth with heart surgery. During that a carotid Doppler was performed showing left internal carotid artery high-grade stenosis. She denies any TIA, history of stroke, changes in vision, unilateral weakness or other symptoms. She denies a fevers, chills, nausea or vomiting. Past Medical History Past Medical History: Atrial Fibrillation, Heart Failure, Hyperlipidemia, Hypertension Additional Past Medical History / Comment(s): colitis, states has been SOB in the last few weeks. History of Any Multi-Drug Resistant Organisms: None Reported Past Surgical History: Appendectomy, Hysterectomy Past Anesthesia/Blood Transfusion Reactions: No Reported Reaction Past Psychological History: No Psychological Hx Reported Smoking Status: Never smoker Past Alcohol Use History: None Reported Past Drug Use History: None Reported - Past Family History Mother Family Medical History: No Reported History Brother(s) Family Medical History: Cancer Additional Family Medical History / Comment(s): Non-Hodgkins Lymphoma Medications and Allergies Home Medications Medication Instructions Recorded Confirmed Type Aspirin [Adult Low Dose Aspirin EC] 81 mg PO DAILY 10/05/15 10/20/19 History Pantoprazole Sodium [Protonix] 40 mg PO DAILY 10/05/15 10/20/19 History Apixaban [Eliquis] 2.5 mg PO BID 10/20/19 10/20/19 History Atorvastatin [Lipitor] 40 mg PO HS 10/20/19 10/20/19 History Cyclobenzaprine [Flexeril] 10 mg PO BID PRN 10/20/19 10/20/19 History Diltiazem Oral [Cardizem Oral] 60 mg PO Q8H 10/20/19 10/20/19 History Furosemide [Lasix] 20 mg PO HS 10/20/19 10/20/19 History Furosemide [Lasix] 40 mg PO QAM 10/20/19 10/20/19 History Metoprolol Tartrate [Lopressor] 12.5 mg PO BID 10/20/19 10/20/19 History Pantethine 450mg 450 mg PO DAILY 10/20/19 10/20/19 History Potassium Chloride [Klor-Con 20] 20 meq PO DAILY 10/20/19 10/20/19 History Vit C/E/Zn/Coppr/Lutein/Zeaxan 1 cap PO BID 10/20/19 10/20/19 History [Preservision Areds 2 Softgel] Allergies Allergy/AdvReac Type Severity Reaction Status Date / Time adhesive Allergy Rash/Hives Verified 10/20/19 17:45 famotidine [From Pepcid] Allergy Rash/Hives Verified 10/20/19 17:22 Surgical - Exam Vital Signs Temp Pulse Resp BP Pulse Ox 97.3 F L 133 H 24 124/87 98 10/20/19 14:35 10/20/19 14:35 10/20/19 14:35 10/20/19 14:35 10/20/19 14:35 Gen. is a petite female in no acute distress. HEENT is normocephalic, atraumatic, excellent motion intact. Lungs are clear bilaterally. Abdomen is soft, thin, nontender. Extremities no clubbing, cyanosis or edema. Cranial nerves II through XII grossly intact. Normal mood and affect. Skin no rashes Results Ultrasound of theCarotids reveals a right internal carotid peak systolic velocity of 77 with a ratio of 1.8. On the left the peak systolic velocity of the ICA is 199.6, the end-diastolic velocity of 54.6 with a ratio of 4.3 correlating to around 70% stenosis - Labs 10/23/19 06:07 10/23/19 06:07 Abnormal Lab Results - Last 24 Hours (Table) 10/23/19 Range/Units 06:07 BUN 38 H (7-17) mg/dL Creatinine 1.22 H (0.52-1.04) mg/dL Microbiology - Last 24 Hours (Table) 10/22/19 06:36 Nasal Screen MRSA/MSSA - Final Nasal Swab Diabetes panel 10/23/19 Range/Units 06:07 Sodium 138 (137-145) mmol/L Potassium 3.8 (3.5-5.1) mmol/L Chloride 100 (98-107) mmol/L Carbon Dioxide 29 (22-30) mmol/L BUN 38 H (7-17) mg/dL Creatinine 1.22 H (0.52-1.04) mg/dL Glucose 96 (74-99) mg/dL Calcium 9.1 (8.4-10.2) mg/dL Calcium panel 10/23/19 Range/Units 06:07 Calcium 9.1 (8.4-10.2) mg/dL Pituitary panel 10/23/19 Range/Units 06:07 Sodium 138 (137-145) mmol/L Potassium 3.8 (3.5-5.1) mmol/L Chloride 100 (98-107) mmol/L Carbon Dioxide 29 (22-30) mmol/L BUN 38 H (7-17) mg/dL Creatinine 1.22 H (0.52-1.04) mg/dL Glucose 96 (74-99) mg/dL Calcium 9.1 (8.4-10.2) mg/dL Adrenal panel 10/23/19 Range/Units 06:07 Sodium 138 (137-145) mmol/L Potassium 3.8 (3.5-5.1) mmol/L Chloride 100 (98-107) mmol/L Carbon Dioxide 29 (22-30) mmol/L BUN 38 H (7-17) mg/dL Creatinine 1.22 H (0.52-1.04) mg/dL Glucose 96 (74-99) mg/dL Calcium 9.1 (8.4-10.2) mg/dL Assessment and Plan Assessment: Asymptomatic left internal carotid artery stenosis approximately 70% Severe mitral regurgitation Plan: At this point discussion was had with the patient regarding the plan. Since she is asymptomatic, if she were not considering going forward with a heart surgery we would maintain her on antiplatelet and statin therapies. That seems to be the way she is leaning at this time. If she decides she does want to undergo cardiac surgery we would need to discuss plans for surgical intervention. Risks and benefits of each were discussed with her. She seemingly understands and is willing to proceed conservatively at this time
--- NOTE | 2019-10-23 18:08 | PN ---
PROGRESS NOTE DATE OF SERVICE: 10/23/2019 This 78-year-old woman who was admitted with atrial fibrillation with a fast ventricular rate also had CHF, acute exacerbation. Patient also has significant severe mitral regurgitation. The patient also had a complex thyroid nodule as well as internal carotid stenosis on the left side of approximately 70%. Multiple consultants are following the patient closely. Open-heart surgery and valve repair are under consideration, also. Past medical history reviewed. REVIEW OF SYSTEMS: CARDIOVASCULAR SYSTEM: As mentioned earlier. RESPIRATORY SYSTEM: As mentioned earlier. GI: No nausea, vomiting. : No dysuria or retention. NERVOUS SYSTEM: No numbness, weakness. CURRENT MEDICATIONS: Reviewed. They include: 1. Tylenol 500 mg q.6 p.r.n. 2. Xanax 0.25 t.i.d. 3. Eliquis 2.5 mg b.i.d. 4. Aspirin 81 mg. 5. Lipitor 40 mg at bedtime. 6. Flexeril 10 mg daily p.r.n. 7. Lomotil p.r.n. 8. Lasix 40 mg p.o. b.i.d. 9. Lopressor 50 mg t.i.d. 10.I-Elton. 11.Narcan. 12.Protonix. 13.K-Dur. PHYSICAL EXAMINATION: Patient alert and oriented x3. Pulse 120, irregular, blood pressure 121/78, respiration 20, temperature 97.6, pulse ox 97% on room air. HEENT: Conjunctivae normal. NECK: No jugular venous distention. CARDIOVASCULAR SYSTEM: S1, S2 muffled. RESPIRATORY SYSTEM: Breath sounds diminished at the bases. Scattered rhonchi and crackles. ABDOMEN: Soft, non-tender. LEGS: No edema. No swelling. NERVOUS SYSTEM: No focal deficit. LABS: WBC 8.5, hemoglobin is 12, sodium 138, potassium 3.8. Creatinine is 1.22. Hepatitis panel is negative. ASSESSMENT: 1. Atrial fibrillation with a fast ventricular rate, present on admission. 2. Congestive heart failure, acute exacerbation, with acute on chronic systolic dysfunction, ejection fraction 30% to 35%. 3. Severe mitral regurgitation. 4. Complex nodule, left thyroid, measuring 9 mm on ultrasound. 5. Severe left internal carotid stenosis about 70%. 6. Anemia, normocytic; anemia of chronic disease. 7. Mild to moderate protein-calorie malnutrition; body mass index of 17.4. 8. Hypertension. 9. Hyperlipidemia. 10.History of colitis. 11.History of appendectomy. 12.History hysterectomy. 13.Chronic kidney disease, stage III. 14.FULL CODE. RECOMMENDATIONS AND DISCUSSION: In this 78-year-old woman who presented with multiple complex medical issues, we will monitor the patient closely, continue the current medications, continue diuretics, continue with the beta blockers. Patient was on Eliquis. Otherwise, follow closely with multiple consultants. Vascular study input appreciated. Surgical intervention might be considered in case the patient cardiac surgery. Otherwise, prognosis is extremely guarded because of multiple complex medical issues, as listed above. Discussed with the patient and family. A copy of this dictation is being forwarded to Dr. Diana, who is the primary physician. MMOLLIEL / IJN: [id number] / MTDD
[2019-10-23] MEDS: ATORVASTATIN 40 MG TAB PO SCH (20:54)
[2019-10-24] MEDS: PANTOPRAZOLE 40 MG TABLET PO SCH (06:28)
--- NOTE | 2019-10-24 07:12 | XR ---
EXAMINATION TYPE: XR chest 2V DATE OF EXAM: 10/24/2019 HISTORY: CHF. REFERENCE: Previous study dated 10/20/2019. FINDINGS: Lung volumes are prominent. There are worsening bilateral effusions, worse on the left than the right. There is associated left basilar airspace disease. The heart is mildly prominent. IMPRESSION: 1. COPD. 2. BILATERAL PLEURAL EFFUSIONS, GREATER ON THE LEFT THAN THE RIGHT. 3. LEFT BASILAR AIRSPACE DISEASE.
--- NOTE | 2019-10-24 10:47 | P.PN ---
Subjective Progress Note Date: 10/24/19 Principal diagnosis: Severe mitral regurgitation per TTE, acute on chronic systolic heart failure with EF 30-35%, atrial fibrillation with rapid ventricular response. Previous medical history of moderate to severe mitral regurgitation on DONALDO with possible ruptured chordae, chronic atrial fibrillation on Eliquis for anticoagulation, chronic systolic heart failure, hypertension, hyperlipidemia, and multiple recent hospitalizations for heart failure The patient is currently sitting up in bed in no acute distress. Still complains of shortness of breath with ambulation to the bathroom, has not ambulated in the hallway. Also states she was dizzy last night when in the bathroom, but recovered once back in bed. Denies any chest pain. Long discussion had at the bedside with the patient, her son, and her daughter. The daughter inquired about Mitra[facility] at [facility]. Once the son was out of the room the patient did state that she was starting to get tired of all the inquiries and options, that she really just wanted to go home but she knows that's not necessarily what her family wants. Reinforced that any decision made is up to her, and there is no wrong decision. All questions answered to the best of my ability. Objective - Vital Signs Vital signs: Vital Signs Temp 98 F 10/24/19 04:00 Pulse 110 H 10/24/19 04:00 Resp 20 10/24/19 04:00 BP 132/75 10/24/19 04:00 Pulse Ox 95 10/24/19 04:00 Intake & Output 10/23/19 10/24/19 10/24/19 18:59 06:59 18:59 Intake Total 340 Output Total 450 120 Balance -110 -120 Weight 43.1 kg Intake: Oral 340 Output: Urine 450 120 Other: Voiding Method Toilet # Voids 1 1 - Constitutional General appearance: Present: cooperative, no acute distress, thin - Respiratory Details: Lungs sounds diminished bilaterally, fine crackles heard in the left base. Respirations even, nonlabored. Currently on 2 LPM NC, oxygen saturation 95%. Able to achieve 750-1000 mL on her incentive spirometry - Cardiovascular Details: S1, S2 present. Positive systolic murmur appreciated. Irregular rate and rhythm, atrial fibrillation with heart rate in the low 100s. Palpable peripheral pulses bilaterally. No edema present. No calf pain or tenderness noted. - Gastrointestinal Gastrointestinal Comment(s): Abdomen soft, nontender, nondistended. Active bowel sounds present 4 quadrants. Tolerating diet. Positive bowel movement - Genitourinary Genitourinary Comment(s): Continues to void - Integumentary Integumentary Comment(s): Skin is warm and dry with evidence of good perfusion - Neurologic Neurologic: Present: CNII-XII intact - Musculoskeletal Musculoskeletal: Present: gait normal, strength equal bilaterally - Psychiatric Psychiatric: Present: A&O x's 3, appropriate affect, intact judgment & insight - Allied health notes Allied health notes reviewed: nursing - Labs CBC & Chem 7: 10/23/19 06:07 10/23/19 06:07 Labs: Microbiology - Last 24 Hours (Table) 10/22/19 06:36 Nasal Screen MRSA/MSSA - Final Nasal Swab - Imaging and Cardiology Chest x-ray: report reviewed, image reviewed Assessment and Plan Assessment: 1. Severe mitral regurgitation per TTE, previously documented moderate to severe mitral regurgitation with ruptured chordae on DONALDO, present since at least 2016 per DONALDO completed at that time 2. Atrial fibrillation with rapid ventricular response on admission, history of chronic atrial fibrillation on Eliquis for anticoagulation 3. Acute on chronic systolic heart failure, EF 30-35% 4. Severe left internal carotid stenosis 5. Mild lung disease with FEV1 62% of predicted 6. Hypertension 7. Hyperlipidemia 8. Multiple hospitalizations recently for heart failure Plan: 1. Dr. Parnell updated with all pre-operative testing results and STS risk score. Would like acute issues optimized, will eval patient in the near future. The patient will meet with Dr. Parnell, discuss surgery, and make final decision although indication is that patient is leaning towards medical managment. 2. STS risk score discussed with the patient and family, patient is high risk for surgery. 3. Recommend heart rate control with beta cayetano therapy. 4. Management of acute heart failure per cardiology. 5. Will need dental clearance prior to valve surgery. Will attempt to get dental clearance from patient's dentist Dr. Gonsalves if patient consents to surgery 6. Did discuss with the patient and her family that valve surgery is not emergent, that she needs her current acute issues to be optimized prior to surgery, and that she may be discharged to home once optimized to return for elective surgery if she decides she is willing to have surgery. 7. Will need to have EliLyfeSystems held 3-5 days prior to surgery. 8. Medical management of other comorbidities per primary care service 9. More recommendations to follow regarding mitral valve repair Time with Patient: Greater than 30
[2019-10-24] MEDS: POTASSIUM CHLORIDE ER 20 MEQ TAB.ER PO SCH (10:50)
[2019-10-24] MEDS: METOPROLOL TARTRATE 50 MG TAB PO SCH ×3 (10:50→21:07)
[2019-10-24] MEDS: APIXABAN 2.5 MG TABLET PO SCH ×2 (10:50→21:07)
[2019-10-24] MEDS: ASPIRIN 81 MG PO SCH (10:50)
[2019-10-24] MEDS: VIT A,C & E-LUTEIN-MINERALS 1 EACH TAB PO SCH ×2 (10:50→21:07)
[2019-10-24] MEDS: FUROSEMIDE 40 MG TAB PO SCH ×2 (10:50→18:15)
--- NOTE | 2019-10-24 13:19 | P.PN ---
Subjective Progress Note Date: 10/24/19 Principal diagnosis: Carotid stenosis Patient seen and examined this morning. No changes since yesterday. Patient denies any lateralizing symptoms such as weakness, vision changes or speech issues. She states that she would like to forego any surgical intervention and treat medically as of now. She is in discussion with cardiothoracic surgery for her mitral valve issues. Objective - Vital Signs Vital signs: Vital Signs Temp 97.6 F 10/24/19 08:00 Pulse 109 H 10/24/19 12:00 Resp 18 10/24/19 12:00 BP 124/89 10/24/19 08:00 Pulse Ox 96 10/24/19 08:00 Intake & Output 10/23/19 10/24/19 10/24/19 18:59 06:59 18:59 Intake Total 340 120 Output Total 450 120 Balance -110 -120 120 Weight 43.1 kg Intake: Oral 340 120 Output: Urine 450 120 Other: Voiding Method Toilet # Voids 1 1 - Exam Alert and oriented 3. No focal deficits. - Constitutional General appearance: Present: cooperative - Labs CBC & Chem 7: 10/23/19 06:07 10/23/19 06:07 Assessment and Plan Assessment: #1 asymptomatic carotid stenosis #2 severe mitral regurgitation #3 atrial fibrillation #4 hypertension Plan: Patient is in conversation with cardiovascular thoracic for possible intervention for her mitral regurgitation. At this time she is leaning towards no intervention and therefore we recommend continued medical management. We will reevaluate at your request. Thank you for allowing us to participate in your patient's care.
--- NOTE | 2019-10-24 14:57 | PN ---
PROGRESS NOTE This is a lady who is 78 years of age. Apparently sees Dr. Posada in the office. She has severe mitral regurgitation and chronic persistent atrial fibrillation and was initially considered surgery and there was also a discussion about mitral valve clip. Mitral valve repair issue was discussed. Patient initially was receptive but apparently decided against it. Dr. Merino is going to see her hopefully today in this regard. The patient is a high risk candidate, but she is waiting here for evaluation by Dr. Merino. She remains in atrial fibrillation, rate control is fairly decent. At the time of my evaluation, patient is a little unhappy because she is waiting long for an opinion, but somehow feels that she does not want to have any aggressive intervention at this time. Her vitals are stable. If she remains in atrial fibrillation, rate is in the range of 80 beats per minute, irregular. There is JVD of 1 cm, no carotid bruit. Heart exam reveals S1, S2 heard normally. There is a holosystolic murmur audible. Lungs reveal bilateral fine basal rales. Abdomen is soft. Lower extremities reveal diminished pulses. Central nervous system grossly within normal limits. This patient has severe mitral regurgitation, atrial fibrillation with a fairly decent controlled rate and moderate high pulmonary hypertension. From a cardiac standpoint, will continue current medications and await further input from Dr. Merino from Cardiac Surgery. MMODL / IJN: [id number] /
--- NOTE | 2019-10-24 18:07 | PN ---
PROGRESS NOTE DATE OF SERVICE: 10/24/2019 This 78-year-old woman was admitted with atrial fibrillation with fast rate, also history of CHF, acute on chronic CHF with multiple episodes such as four episodes since September. The patient also had severe mitral regurgitation. The patient also had multiple other complex medical issues including internal carotid stenosis on the left, 70%. The patient closely monitored at this time. PAST MEDICAL HISTORY: Reviewed. REVIEW OF SYSTEM: CARDIOVASCULAR SYSTEM: As mentioned earlier. RESPIRATORY: As mentioned earlier. GI: No nausea. : No dysuria. NERVOUS SYSTEM: No numbness or weakness. The chest x-ray which was reviewed by me showed some increased bronchovascular markings, evidence of some CHF also. CURRENT MEDICATIONS: 1. Tylenol p.r.n. 2. Xanax 0.5 t.i.d. 3. Eliquis 2.5 mg b.i.d. 4. Aspirin 81 mg p.o. 5. Lipitor 40 mg p.o. q.h.s. 6. Flexeril 10 mg p.o. b.i.d. 7. Lomotil 1 p.o. q.6h. 8. Lasix 40 mg b.i.d. 9. Lopressor 50 mg p.o. b.i.d. PHYSICAL EXAMINATION: Alert and oriented x3. Pulse 109, blood pressure 124/89, respiration 18, temperature 97.6, pulse ox 98% on 2 L. HEENT: Conjunctivae normal. Oral mucosa moist. NECK: No jugular venous distention. No lymph node enlargement. CARDIOVASCULAR: S1, S2. RESPIRATORY: Diminished breath sounds at the bases. Bilateral scattered rhonchi and crackles. ABDOMEN: Soft, nontender. LEGS: No edema, no swelling. NERVOUS SYSTEM: No focal deficits. LABS: WBC 8.2, hemoglobin 12, sodium 138, potassium 3.8 creatinine is 1.22. ASSESSMENT: 1. Atrial fibrillation with fast ventricular rate, present on admission. 2. Congestive heart failure acute exacerbation with acute on chronic systolic dysfunction, ejection fraction 30-35%. 3. Recurrent congestive heart failure history. 4. Severe mitral regurgitation. 5. Complex left thyroid nodule measuring about 9 mm on ultrasound. 6. Severe left internal carotid stenosis about 70%. 7. Anemia, normocytic anemia of chronic disease. 8. Mild to moderate protein calorie malnutrition with BMI of 17.4. 9. Hypertension. 10.Hyperlipidemia. 11.History of colitis. 12.History of appendectomy. 13.History of hysterectomy. 14.Chronic kidney stage 3. 15.FULL CODE. RECOMMENDATIONS AND DISCUSSION: Recommend to continue current medications, continue symptomatic treatment. Otherwise, at this time I recommend monitor the patient closely, continue the diuretics. Otherwise PT, OT evaluation and cardiothoracic evaluation also in progress at this time. Vascular Surgery has seen the patient. Further recommendations to follow. Guarded prognosis. MMODL / IJN: [id number] /
[2019-10-24] MEDS: ATORVASTATIN 40 MG TAB PO SCH (21:07)
[2019-10-25] MEDS: PANTOPRAZOLE 40 MG TABLET PO SCH (06:23)
[2019-10-25] MEDS ORDERED: MELATONIN 3 MG TABLET PO PRN (08:17)
[2019-10-25] MEDS: ASPIRIN 81 MG PO SCH (08:40)
[2019-10-25] MEDS: POTASSIUM CHLORIDE ER 20 MEQ TAB.ER PO SCH (08:40)
[2019-10-25] MEDS: APIXABAN 2.5 MG TABLET PO SCH ×2 (08:40→19:54)
[2019-10-25] MEDS: FUROSEMIDE 40 MG TAB PO SCH ×2 (08:40→15:15)
[2019-10-25] MEDS: VIT A,C & E-LUTEIN-MINERALS 1 EACH TAB PO SCH ×2 (08:40→19:55)
[2019-10-25] MEDS: METOPROLOL TARTRATE 50 MG TAB PO SCH ×3 (08:40→19:54)
--- NOTE | 2019-10-25 12:09 | P.PN ---
Subjective Progress Note Date: 10/25/19 Principal diagnosis: CHF / Afib RVR PROGRESS NOTE 10/25/19 This is a 78-year-old female with history of severe mitral regurgitation, chronic/persistent atrial fibrillation with RVR, increasing shortness of breath and CHF. Patient currently in discussions with Dr. Parnell's group for possible mitral valve repair, ruptured chordae tendineae repair and CABG. Patient is still unsure if she will go with the procedure and is discussing this with cardiac surgery. Patient lying in bed this a.m. with no current complaints of chest pain, chest pressure, shortness of breath or palpitations. Continues atrial fibrillation, controlled rate at 72. No acute distress. VSS. 98% on 2L O2. PHYSICAL EXAMINATION: HEENT: Head is atraumatic, normocephalic. Pupils are equal, round. Sclerae anicteric. Conjunctivae are clear. Mucous membranes of the mouth are moist. Neck is supple. There is no jugular venous distention. No carotid bruit is heard. No thyromegaly. LUNGS: Clear to auscultation no wheezes, rales or rhonchi. No chest wall tenderness is noted on palpation or with deep breathing. HEART: Controlled rate and irregular rhythm. III/ systolic murmur. No rubs or gallops. S1 and S2 heard. ABDOMEN: Abdominal exam revealed normal bowel sounds. The abdomen was soft, non- tender, and without masses, organomegaly, or appreciable enlargement of the abdominal aorta. EXTREMITIES: Examination of the extremities revealed easily palpable radial, femoral and pedal pulses. There was no cyanosis, clubbing or edema. No calf tenderness noted. VASCULAR: Radial and dorsalis pedis pulses palpated, no evidence of clubbing. NEUROLOGIC: Patient is awake, alert and oriented x3. There were no obvious focal neurologic abnormalities. LAB DATA: BUN 38, CR 1.22 otherwise WNL. FINAL IMPRESSION: 1. severe mitral regurgitation 2. atrial fibrillation, chronic 3. congestive heart failure 4. hypertension 5. pulmonary HTN PLAN: Continue same medical/medication regime. Awaiting consultation and decision for planned cardiac surgery with Dr. Ortiz's group. The diet/low salt diet. Objective - Vital Signs Vital signs: Vital Signs Temp 98.1 F 10/25/19 08:00 Pulse 107 H 10/25/19 08:00 Resp 18 10/25/19 08:00 BP 131/72 10/25/19 08:00 Pulse Ox 97 10/25/19 08:00 Intake & Output 10/24/19 10/25/19 10/25/19 18:59 06:59 18:59 Intake Total 120 240 Output Total 450 Balance 120 -450 240 Weight 42.9 kg Intake: Oral 120 240 Output: Urine 450 Other: Voiding Method Toilet # Voids 3 - Labs CBC & Chem 7: 10/23/19 06:07 10/23/19 06:07
--- NOTE | 2019-10-25 17:07 | P.PN ---
Subjective Progress Note Date: 10/25/19 Principal diagnosis: Severe mitral regurgitation per TTE, acute on chronic systolic heart failure with EF 30-35%, atrial fibrillation with rapid ventricular response. Previous medical history of moderate to severe mitral regurgitation on DONALDO with possible ruptured chordae, chronic atrial fibrillation on Eliquis for anticoagulation, chronic systolic heart failure, hypertension, hyperlipidemia, and multiple recent hospitalizations for heart failure The patient is currently sitting up in bed in no acute distress. Still complains of shortness of breath with ambulation to the bathroom, has not ambulated in the hallway. Denies any chest pain. Long discussion had at the bedside with the patient and her family by Dr. Parnell, additionally patient's daughter and son were shown patient's DONALDO and given explanation of findings. Objective - Vital Signs Vital signs: Vital Signs Temp 97.9 F 10/25/19 15:16 Pulse 114 H 10/25/19 15:16 Resp 18 10/25/19 15:16 BP 113/88 10/25/19 15:16 Pulse Ox 99 10/25/19 15:16 Intake & Output 10/24/19 10/25/19 10/25/19 18:59 06:59 18:59 Intake Total 120 240 Output Total 450 Balance 120 -450 240 Weight 42.9 kg Intake: Oral 120 240 Output: Urine 450 Other: Voiding Method Toilet # Voids 3 - Constitutional General appearance: Present: cooperative, no acute distress, thin - Respiratory Details: Lungs sounds diminished bilaterally, fine crackles heard in the left base. Respirations even, nonlabored. Currently on 2 LPM NC, oxygen saturation 99%, did drop her oxygen saturation to 87% on room air. Able to achieve 750 mL on her incentive spirometry - Cardiovascular Details: S1, S2 present. Positive systolic murmur appreciated. Irregular rate and rhythm, atrial fibrillation with heart rate in the 70s-low 100s. Palpable peripheral pulses bilaterally. No edema present. No calf pain or tenderness noted. - Gastrointestinal Gastrointestinal Comment(s): Abdomen soft, nontender, nondistended. Active bowel sounds present 4 quadrants. Tolerating diet. Positive bowel movement - Genitourinary Genitourinary Comment(s): Continues to void - Integumentary Integumentary Comment(s): Skin is warm and dry with evidence of good perfusion - Neurologic Neurologic: Present: CNII-XII intact - Musculoskeletal Musculoskeletal: Present: gait normal, strength equal bilaterally - Psychiatric Psychiatric: Present: A&O x's 3, appropriate affect, intact judgment & insight - Allied health notes Allied health notes reviewed: nursing - Labs CBC & Chem 7: 10/23/19 06:07 10/23/19 06:07 - Imaging and Cardiology Reviewed TTE/DONALDO/heart cath films with Dr. Parnell. Dr. Parnell reviewed DONALDO films with patient's daughter and son Assessment and Plan Assessment: 1. Severe mitral regurgitation per TTE, previously documented moderate to severe mitral regurgitation with ruptured chordae on DONALDO, present since at least 2016 per DONALDO completed at that time 2. Atrial fibrillation with rapid ventricular response on admission, history of chronic atrial fibrillation on Eliquis for anticoagulation 3. Acute on chronic systolic heart failure, EF 30-35% 4. Severe left internal carotid stenosis 5. Mild lung disease with FEV1 62% of predicted 6. Hypertension 7. Hyperlipidemia 8. Multiple hospitalizations recently for heart failure Plan: 1. Discussion had between patient, her family, and Dr. Parnell. All risks and benefits reviewed, all questions answered. Decision made for medical managment per patient. 2. STS risk score discussed with the patient and family, patient is high risk for surgery. 3. Recommend heart rate control with beta cayetano therapy. 4. Management of acute heart failure per cardiology. 5. Medical management of other comorbidities per primary care service 6. Patient is declining open heart surgery at this time. We did inform her and her family that if she changes her mind please contact us and we will schedule surgery, which would likely be mitral valve replacement with ligation of the left atrial appendage, with possible carotid stent prior to surgery. 7. Will see patient on an as needed basis. Please call us with any questions. Time with Patient: Greater than 30
[2019-10-25] MEDS: ATORVASTATIN 40 MG TAB PO SCH (19:54)
--- NOTE | 2019-10-25 21:52 | PN ---
PROGRESS NOTE DATE OF SERVICE: 10/25/2019 This 78-year-old woman who was admitted with atrial fibrillation. Patient also had CHF. The patient also has significant mitral regurgitation. No chest pain. No palpitations. Cardiothoracic surgery is evaluating the patient as well. The patient reports to me that she would like to go home and think about the further course of action at this time. Dr. Diana is following the patient in the outpatient setting. The patient also has significant carotid disease. No chest pain, no palpitation. PHYSICAL EXAM: Alert and oriented x3. Pulse is 114, blood pressure 138/80, respiration 18, temperature 97.9, pulse ox 98% on 2 L. HEENT: Conjunctivae normal. Oral mucosa moist. NECK: No jugular venous distention. No lymph node enlargement. CARDIOVASCULAR: S1, S2. Tachycardiac. RESPIRATORY: Diminished breath sounds at the bases. A few scattered rhonchi. ABDOMEN: Soft, nontender. LEGS: No edema, no swelling. NERVOUS SYSTEM: No focal deficits. LABS: WBC 8.2, hemoglobin is 12, sodium 138, creatinine is 1.22. ASSESSMENT: 1. Atrial fibrillation with fast ventricular rate, present on admission. 2. Congestive heart failure acute exacerbation with acute on chronic systolic dysfunction, ejection fraction 30-35%. 3. Recurrent congestive heart failure history. 4. Severe mitral regurgitation. 5. Complex left thyroid nodule measuring about 9 mm on ultrasound. 6. Severe left internal carotid artery stenosis about 70%. 7. Anemia, normocytic anemia of chronic disease. 8. Mild to moderate protein calorie malnutrition with BMI of 17.5. 9. Hypertension. 10.Hyperlipidemia. 11.History of colitis. 12.History of appendectomy. 13.History of hysterectomy. 14.History of chronic kidney disease stage III. 15.FULL CODE. RECOMMENDATIONS AND DISCUSSION: In this 78-year-old woman who presented with multiple complex medical issues, we will monitor the patient closely, continue the current medications, continue symptomatic treatment. Will continue with diuretics. The patient is on 40 mg p.o. b.i.d. The patient is also on apixaban. The patient also metoprolol 50 mg p.o. t.i.d. Continue to monitor. Further recommendations to follow. MMODL / IJN: [id number] /
[2019-10-25 23:48] VITALS: PULSE 98
[2019-10-26] MEDS: PANTOPRAZOLE 40 MG TABLET PO SCH (06:45)
[2019-10-26] MEDS: ASPIRIN 81 MG PO SCH (08:51)
[2019-10-26] MEDS: METOPROLOL TARTRATE 50 MG TAB PO SCH (08:51)
[2019-10-26] MEDS: POTASSIUM CHLORIDE ER 20 MEQ TAB.ER PO SCH (08:51)
[2019-10-26] MEDS: APIXABAN 2.5 MG TABLET PO SCH (08:51)
[2019-10-26] MEDS: FUROSEMIDE 40 MG TAB PO SCH (08:51)
[2019-10-26] MEDS: VIT A,C & E-LUTEIN-MINERALS 1 EACH TAB PO SCH (08:54)
[2019-10-26 11:40] VITALS: BMI 16.6
[2019-10-26 12:52] VITALS: BP 118/65; RESP 16; TEMP 98.3
--- NOTE | 2019-10-26 15:24 | P.PN ---
Subjective Progress Note Date: 10/26/19 This is an 78-year-old female with history of severe mitral regurgitation, congestive heart failure, persistent atrial fibrillation who presented to the hospital with symptoms of shortness of breath and palpitations. She has known moderate to severe mitral regurgitation with a ruptured chordae t endon a and is awaiting evaluation by cardiothoracic surgery for possible mitral valve repair. She presented to the hospital as mentioned with symptoms of shortness of breath and palpitations and was found to be in atrial fibrillation with a rapid ventricular response. Patient was seen and examined this morning, continues to be in atrial fibrillation her heart rate today is in the high 80s. Blood pressure 132/70, 93% on 3 L of oxygen. White blood cell count 7.1, hemoglobin 11.7, platelet count 167. Sodium 139, potassium 3.8, BUN 30, creatinine 1.0, magnesium 1.8. A cardiogram with Doppler study revealed an ejection fraction of 30-35%, severe mitral regurgitation. Because of the signif icantly reduced LV function, we'll discontinue the Cardizem and up the dose of beta cayetano. 10/26/2019 Patient seen and examined this morning, feeling pretty well overall. She has made a decision not to undergo any surgical procedures on her mitral valve. She is anticipating discharge home today. The patient and daughter were requesting to be off of the Eliquis and back on Coumadin because of cost. Let pressure 118/60 with a heart rate in the 80s, 100% on 2 L of oxygen. White blood cell c ount 8.5, hemoglobin 12, platelet count 187. Sodium 138, potassium 3.8, BUN 38, creatinine 1.2. Objective - Vital Signs Vital signs: Vital Signs Temp 98.3 F 10/26/19 08:00 Pulse 98 10/26/19 12:00 Resp 16 10/26/19 12:00 BP 118/65 10/26/19 08:00 Pulse Ox 100 10/26/19 08:00 Intake & Output 10/25/19 10/26/19 10/26/19 18:59 06:59 18:59 Intake Total 240 960 Output Total 450 Balance 240 510 Weight 42.6 kg 42.6 kg Intake: Oral 240 960 Output: Urine 450 Other: Voiding Method Toilet # Voids 1 1 # Bowel Movements 1 - Exam PHYSICAL EXAMINATION: GENERAL: 78-year-old female in no acute distress at the time of my examination HEENT: Head is atraumatic, normocephalic. Pupils equal, round. Sclera anicter ic. Conjunctiva are clear. Mucous membranes of the mouth are moist. Neck is supple. There is no elevated jugular venous pressure. No carotid bruit is heard. HEART EXAMINATION: Heart S1 and S2 irregularly irregular a grade 4/6 systolic murmur is heard CHEST EXAMINATION:[ Lungs are clear to auscultation and precussion. No chest wall tenderness is noted on palpation or with deep breathing.] ABDOMEN: [ Soft, nontender. Bowel sounds are heard. No organomegaly noted]. EXTREMITIES:[ 2+ peripheral pulses with no evidence of peripheral edema and no calf tenderness noted]. NEUROLOGIC [patient is awake, alert and oriented X3] . - Labs CBC & Chem 7: 10/23/19 06:07 10/23/19 06:07 Assessment and Plan Plan: Assessment and plan #1 systolic congestive heart failure acute on chronic #2 persistent atrial fibrillation #3 severe mitral regurgitation Plan Patient may be discharged home today from cardiology's perspective, a follow-up appointment will be made with Dr. Alvarez in the office post discharge. DNP note has been reviewed, I agree with a documented findings and plan of care. Patient was seen and examined.
[2019-10-26] MEDS ORDERED: WARFARIN 2.5 MG TAB PO SCH (18:00)
--- NOTE | 2019-10-27 08:24 | P.DS ---
Providers Date of admission: 10/22/19 09:06 Expected date of discharge: 10/26/19 Attending physician: Gregory Silva Consults: 10/20/19 16:13 Consult Physician Urgent Consulting Provider: Mendoza Posada Consult Reason/Comments: a fib w rvr, chf Do you want consulting provider notified?: Yes 10/21/19 13:29 Consult Physician Routine Consulting Provider: Jonh Morrell Consult Reason/Comments: known severe mitral regurg; Do you want consulting provider notified?: Yes 10/22/19 11:11 Consult Physician Routine Consulting Provider: Kehinde Ortiz Consult Reason/Comments: PFT eval, MV repair workup Do you want consulting provider notified?: Yes 10/23/19 13:20 Consult Physician Routine Consulting Provider: Edgar Heath Consult Reason/Comments: carotid stenosis Do you want consulting provider notified?: Yes Primary care physician: Loretta Diana Hospital Course: Final diagnosis Atrial fibrillation with fast ventricular rate, present on admission Congestive heart failure acute exacerbation with acute on chronic systolic dysfunction, ejection fraction 30-35% Recurrent congestive heart failure history Severe mitral regurgitation Complex left thyroid nodule measuring about 9 mm on ultrasound Severe left internal carotid artery artery stenosis about 70% Mild protein calorie malnutrition with a BMI of 17.5 Hypertension Hyperlipidemia History of colitis History of appendectomy History of hysterectomy History of chronic kidney disease stage III Full code Discharge disposition Patient is being discharged in a stable condition with guarded prognosis to home and will follow-up with Dr. Diana in the outpatient setting upon discharge. Patient will also be following up with Dr. Posada in the outpatient setting as scheduled. Total time taken is 35 minutes. History of present illness This is an 78-year-old woman who was recently admitted with atrial fibrillation and also congestive heart failure and is being closely monitored. Cardiology is following. Patient has significant mitral regurgitation and was evaluated by cardiothoracic surgery. At this time patient and family members have discussed her options and would like to go home and think about it and follow-up with Dr. Posada in the outpatient setting. Patient will also follow-up with Dr. Diana in the outpatient setting upon discharge. Patient was started on Coumadin and will need frequent PT/INR levels. Patient will also continue on metoprolol. Patient is known to have significant carotid disease and is aware of this finding. Currently no reports of chest pain, shortness of breath, or palpitations. Patient is afebrile. No reports of nausea or vomiting and patient is tolerating diet. Patient's condition is stable and would like to go home today. Guarded prognosis. On exam vital signs are stable. Temp is 98.3F, pulse is 85, respirations are 16, blood pressure is 118/65, oxygen saturation is 100% on 2 L via nasal cannula. Cardio S1, S2 are muffled. Respiratory system shows diminished breath sounds at the bases with no wheezing or rhonchi noted. Abdomen soft, thin, nontender. Nervous system shows no focal deficits. Please refer to medication reconciliation sheet for a list of medications. Patient Condition at Discharge: Stable Plan - Discharge Summary Discharge Rx Participant: No New Discharge Prescriptions: New Metoprolol Tartrate [Lopressor] 50 mg PO TID 30 Days #90 tab Warfarin [Coumadin] 2.5 mg PO DAILY@1800 #30 tab Continue Aspirin [Adult Low Dose Aspirin EC] 81 mg PO DAILY Pantoprazole Sodium [Protonix] 40 mg PO DAILY Pantethine 450mg 450 mg PO DAILY Vit C/E/Zn/Coppr/Lutein/Zeaxan [Preservision Areds 2 Softgel] 1 cap PO BID Atorvastatin [Lipitor] 40 mg PO HS Furosemide [Lasix] 40 mg PO QAM Furosemide [Lasix] 20 mg PO HS Potassium Chloride [Klor-Con 20] 20 meq PO DAILY Cyclobenzaprine [Flexeril] 10 mg PO BID PRN PRN Reason: Muscle Spasm Discontinued Apixaban [Eliquis] 2.5 mg PO BID Diltiazem Oral [Cardizem Oral] 60 mg PO Q8H Metoprolol Tartrate [Lopressor] 12.5 mg PO BID No Action Mirabegron [Myrbetriq] 50 mg PO DAILY Discharge Medication List Aspirin [Adult Low Dose Aspirin EC] 81 mg PO DAILY 10/05/15 [History] Pantoprazole Sodium [Protonix] 40 mg PO DAILY 10/05/15 [History] Atorvastatin [Lipitor] 40 mg PO HS 10/20/19 [History] Cyclobenzaprine [Flexeril] 10 mg PO BID PRN 10/20/19 [History] Furosemide [Lasix] 20 mg PO HS 10/20/19 [History] Furosemide [Lasix] 40 mg PO QAM 10/20/19 [History] Pantethine 450mg 450 mg PO DAILY 10/20/19 [History] Potassium Chloride [Klor-Con 20] 20 meq PO DAILY 10/20/19 [History] Vit C/E/Zn/Coppr/Lutein/Zeaxan [Preservision Areds 2 Softgel] 1 cap PO BID 10/20/19 [History] Metoprolol Tartrate [Lopressor] 50 mg PO TID 30 Days #90 tab 10/26/19 [Rx] Mirabegron [Myrbetriq] 50 mg PO DAILY 10/26/19 [History] Warfarin [Coumadin] 2.5 mg PO DAILY@1800 #30 tab 10/26/19 [Rx] Follow up Appointment(s)/Referral(s): Mendoza Posada MD [STAFF PHYSICIAN] - 11/03/19 3:15 pm (Saturday) Loretta Diana MD [Primary Care Provider] - 10/28/19 11:30 am (Saturday) Sharif Kerr [NON-STAFF] - 1 Week (Oxygen needs) Ambulatory/Diagnostic Orders: Basic Metabolic Panel [LAB.AMB] Time Frame: 2 Days, Location: None Selected Prothrombin Time INR [LAB.AMB] Time Frame: 2 Days, Location: None Selected Patient Instructions/Handouts: A-fib (Atrial Fibrillation) (DC), Mitral Regurgitation (DC), Vitamin K in Foods (DC) Activity/Diet/Wound Care/Special Instructions: Patient needs home oxygen at discharge secondary to hypoxia from chronic CHF (I50.9) [facility] - [phone] Activity Limited until follow-up Follow-up with Dr. Posada in the outpatient setting Follow-up with primary care provider upon discharge Continue current diet Discharge Disposition: HOME WITH HOME HEALTH SERVICES
== END 2019-10-26 14:05 | disposition home health service (06) | DRG 291 ==
LOC: EC 14:26 → 3SCARD 16:29 → OBSVTOIN 10-22 09:06
PROVIDERS: ADMIT Hospitalist; ATTEND Hospitalist
DX: I13.0 Hypertensive heart and chronic kidney disease with heart failure and stage 1 through stage 4 chronic kidney disease, or unspecified chronic kidney disease (principal); I50.23 Acute on chronic systolic (congestive) heart failure; I51.1 Rupture of chordae tendineae, not elsewhere classified; E44.0 Moderate protein-calorie malnutrition; I48.19 Other persistent atrial fibrillation; Z68.1 Body mass index [BMI] 19.9 or less, adult; I27.20 Pulmonary hypertension, unspecified; D63.8 Anemia in other chronic diseases classified elsewhere; N18.3 Chronic kidney disease, stage 3 (moderate); R54 Age-related physical debility; Z79.01 Long term (current) use of anticoagulants; E04.1 Nontoxic single thyroid nodule; E78.5 Hyperlipidemia, unspecified; I34.0 Nonrheumatic mitral (valve) insufficiency; I65.22 Occlusion and stenosis of left carotid artery; H91.90 Unspecified hearing loss, unspecified ear; H54.7 Unspecified visual loss; Z79.82 Long term (current) use of aspirin; Z79.899 Other long term (current) drug therapy; Z90.710 Acquired absence of both cervix and uterus; Z90.49 Acquired absence of other specified parts of digestive tract; Z88.8 Allergy status to other drugs, medicaments and biological substances; Z80.7 Family history of other malignant neoplasms of lymphoid, hematopoietic and related tissues
CPT/HCPCS: 36415; 71046; 80048; 80053; 80061; 80074; 81003; 83036; 83735; 83880; 84443; 84484; 85025; 85610; 85730; 87070; 93005; 93306; 93880; 94150; 96365; 96366; 96372; 96374; 96376; 99291